=== PATIENT | male | born 2000 | race Caucasian/White ===

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

== ENCOUNTER 2020-01-19 22:46 | Emergency (ER) | payer MEDICAID, SELFPAY ==
[2020-01-19 22:47] VITALS: BP 145/79; PULSE 86; RESP 18; TEMP 36.9; O2SAT 97; BMI 32.6
--- NOTE | 2020-01-19 23:03 | ED.VISSUMM ---
- ER Visit Summary Date of Service: 01/19/20 Chief Complaint: Earache on the left History of Present Illness: The patient is a 19 M with no primary care physician. Reports he has left ear pain that began 1 week ago. Came on suddenly. States that he woke up in the morning with it. Is a sharp continuous pain is 10-10 at worst and 3-10 currently. Is worsened by loud noises. Relieved by sleeping. He denies any fever, chills, congestion, sore throat, or cough. He does have seasonal allergies. Physical Examination: Vitals: Stable. Afebrile. General: Well-nourished and well-developed. Head: Normocephalic atraumatic. HEENT: External auditory canals are normal bilaterally. He has a serous effusion on the left. There is no erythema, dullness, or loss of landmarks. No pharyngeal erythema or tonsillar exudate. No cervical lymphadenopathy. Neck: Supple, no lymphadenopathy. No JVD. Nontender. Cardiovascular: Regular rate and rhythm. No murmurs. Respiratory: No respiratory distress. Clear to auscultation bilaterally. Abdominal: Soft, nontender, nondistended, normal bowel sounds. No guarding, rebound, or peritoneal signs. Back: Nontender. Extremities: Nontender, no edema. Skin: Normal color, no rash. Neurologic: Alert and oriented ?3. Cranial nerves II through XII are intact. Normal strength and sensation. Psych: Normal affect. Emergency Department Course and Treatment: Patient was given a dose of naproxen. He is resting comfortably. Treatment Plan: Patient be discharged on Zyrtec and naproxen. Instructed to follow-up with the [facility] and 10 to 14 days if not improving. Return to the emergency department for any worsening symptoms. Disposition: To home in improved and stable condition. Impression: 1. Left ear serous effusion. This note was generated with [employer] dictation software. It may contain incorrect words, spelling, and punctuation that were not noted in review of the chart prior to signing ED Disposition - Plan for ED Patient: Disposition: Home or Assisted Living Instructions: ED SEROUS OTITIS MEDIA Adult Prescriptions: Naproxen [Naprosyn] 500 mg PO BID #14 tab Prescription Printed Cetirizine HCl [Zyrtec] 10 mg PO DAILY #14 cap Prescription Printed Referrals: Mignon Coyle [NON-STAFF] - 10-14 Days if not better
[2020-01-19] MEDS: Naproxen 250 MG Tablet 500 MG PO (23:18)
== END 2020-01-19 23:26 | disposition home or self-care (01) ==
LOC: ED 23:25
PROVIDERS: Emergency Provider Emergency Medicine
DX: H92.02 Otalgia, left ear (principal); Z72.0 Tobacco use
CPT/HCPCS: 99283

== ENCOUNTER 2020-02-11 17:15 | Emergency (ER) | payer MEDICAID, SELFPAY ==
[2020-02-11 17:16] VITALS: BP 140/84; PULSE 101; RESP 16; TEMP 36.6; O2SAT 96; BMI 33.3
--- NOTE | 2020-02-11 17:22 | CT_ITS ---
STUDY: CT BRAIN WITHOUT CONTRAST REASON FOR EXAM: Male, 19 years old. PT STATED HE HIT HIS HEAD TODAY RADIATION DOSAGE (If Supplied By Facility): CTDIvol = ( 44.99 ) mGy, DLP = ( 745.49 ) mGycm TECHNIQUE: Transaxial CT imaging of the brain was performed without administration of intravenous contrast material. Individualized dose optimization techniques were used for this CT. COMPARISON: No relevant priors. FINDINGS: Normal soft tissue structures. Normal calvarium. Normal size ventricles and extra-axial spaces for the patient''s age. Normal white matter tracts of the cerebral hemispheres. Normal basal ganglia and thalami. Normal brainstem. Normal cerebellum. There is no intracranial hemorrhage. There are no findings of an acute ischemic infarction. Normal visualized paranasal sinuses. CT/Brain/Head without Contrast IMPRESSION: Normal unenhanced CT scan of the brain. Electronically Signed: Davey Fay MD at 17:47 EDT , Service support ,
--- NOTE | 2020-02-11 17:22 | CT_ITS ---
STUDY: CT CERVICAL SPINE WITHOUT CONTRAST REASON FOR EXAM: Male, 19 years old. PT STATED HE HIT HIS HEAD TODAY RADIATION DOSAGE (If Supplied By Facility): CTDIvol = ( 29.28 ) mGy, DLP = ( 703.81 ) mGycm TECHNIQUE: High resolution transaxial imaging was performed without contrast material. Sagittal and coronal images were reconstructed. Individualized dose optimization techniques were used for this CT. COMPARISON: None FINDINGS: Normal craniovertebral junction. Normal anterior atlantoaxial articulation. Normal odontoid process. Normal cervical lordosis. Normal vertebral bodies and posterior osseous elements. C2-3: Normal endplates. Normal disc height and morphology. Normal central canal and intervertebral neuroforamina. C3-4: Normal endplates. Normal disc height and morphology. Normal central canal and intervertebral neuroforamina. C4-5: Normal endplates. Normal disc height and morphology. Normal central canal and intervertebral neuroforamina. C5-6: Normal endplates. Normal disc height and morphology. Normal central canal and intervertebral neuroforamina. C6-7: Normal endplates. Normal disc height and morphology. Normal central canal and intervertebral neuroforamina. C7-T1: Normal endplates. Normal disc height and morphology. Normal central canal and intervertebral neuroforamina. Normal visualized soft tissue structures. CT/Spine Cervical without Contras IMPRESSION: Normal unenhanced CT examination of the cervical spine. Electronically Signed: Davey Fay MD at 17:48 EDT , Service support ,
--- NOTE | 2020-02-11 17:23 | ED.VIS.GEN ---
History of Present Illness Chief Complaint: Head Injury Informant: Patient Onset: Yesterday Context: Gradual Onset Timing: Continuous Current Severity: Moderate Maximum Severity: Moderate Narrative: Patient is an otherwise healthy male who presents to the emergency department with head and neck injury. Patient states he was playing on a slide with his younger sister yesterday. He fell and struck the ground. He states he landed on his face. He was wearing glasses. He had some bleeding from his nares. He is unsure if he lost consciousness, but states I blacked out. Since, he is had persistent headache, disequilibrium, and neck pain. He denies any numbness or tingling. He denies any weakness of his arms. He has not taken anything for his pain. He is not on anticoagulants. Prior similar symptoms: No Recent Illness/Hospitalization: No Past Medical History - Allergies and Home Meds Allergies/Adverse Reactions: Allergies No Known Allergies Allergy (Verified 02/11/20 17:15) Primary Care Physician: Care Physician,No Primary [Primary Care Provider] - Prior records reviewed: Yes Past Medical History: None Surgical History: no surgical history Smoking Status: Current every day smoker Review of Systems General: Denies: Chills, Fever, Sweats Eyes: Denies: Visual changes - bilaterally, Diplopia ENT: Denies: Rhinorrhea, Sore throat Cardiovascular: Denies: Chest pain, Palpitations Respiratory: Denies: Dyspnea, Cough, Dyspnea on exertion Gastrointestinal: Denies: Abdominal pain, Nausea, Vomiting, Diarrhea, Melena, Hematochezia Genitourinary: Denies: Dysuria, Hematuria, Frequency Musculoskeletal: Denies: Back pain, Extremity Pain Skin: Denies: Rash, Wounds Neurological: Denies: Headache, Weakness, Numbness Physical Exam Vital Signs/Narrative: Vital Signs Temp Pulse Resp BP Pulse Ox 02/11/20 17:16 97.9 F 101 H 16 140/84 H 96 Inital Vital Signs reviewed: Yes General: Well nourished, Well developed, No Acute Distress Head: Normocephalic, Trauma - Trauma across bridge of the nose. No septal hematoma. Eyes: Perrl, EOMI ENT: Moist mucous membranes, No rhinorrhea Neck: Supple, No lymphadenopathy, No JVD Cardiovascular: Regular rate, Regular rhythm, No murmurs Respiratory: No distress, CTA bilaterally, Chest nontender Abdomen: Soft, Nontender, Nondistended, Normal bowel sounds Back: Nontender, Normal Inspection Extremities: Nontender, No edema Skin: Normal color, No rash Neurological: Alert, Oriented x3, Cranial nerves II-XII grossly intact, Normal Strength, Normal Sensation Psychological: Normal affect, Normal Mood Diagnostic/Tx/Re-eval Clinical Impression(s) from Imaging Studies Brain CT 02/11/20 17:22 IMPRESSION: Normal unenhanced CT scan of the brain. Electronically Signed: Davey Fay MD at 17:47 EDT , Service support , Cervical Spine CT 02/11/20 17:22 IMPRESSION: Normal unenhanced CT examination of the cervical spine. Electronically Signed: Davey Fay MD at 17:48 EDT , Service support , - Medical Decision Making With the patient's persistent headache and neck pain, I did obtain imaging. CT of the head and C-spine were both obtained. There was no and so fracture, intracranial abnormality, or other dangerous process. The patient likely has a mild concussion and cervical strain. He will be treated symptomatically. He was counseled on concerning symptoms and reasons to return. He has normal reflexes and strength of his upper extremities. I am not worried about vertebral artery dissection or central cord syndrome based on his examination. Patient was counseled on supportive care. He will be discharged home. Impression 1. Concussion 2. Cervical strain ED Disposition - Plan for ED Patient: Instructions: ED Concussion, ED Sprain Strain Neck Prescriptions: cycloBENZAPRine HCl [Flexeril] 10 mg PO TID PRN #20 tab PRN Reason: Muscle Spasm Prescription Printed Naproxen [Naprosyn] 500 mg PO BID PRN #20 tab Prescription Printed Referrals: Care Physician,No Primary [Primary Care Provider] -
== END 2020-02-11 18:04 | disposition home or self-care (01) ==
LOC: ED 17:53
PROVIDERS: Emergency Provider Emergency Medicine
DX: S06.0X9A Concussion with loss of consciousness of unspecified duration, initial encounter (principal); S16.1XXA Strain of muscle, fascia and tendon at neck level, initial encounter; W09.0XXA Fall on or from playground slide, initial encounter; Y93.89 Activity, other specified; Y92.9 Unspecified place or not applicable; Y99.9 Unspecified external cause status; F17.200 Nicotine dependence, unspecified, uncomplicated
CPT/HCPCS: 70450; 72125; 99282

== ENCOUNTER 2020-03-01 08:10 | Emergency (ER) | payer MEDICAID, SELFPAY ==
[2020-03-01 08:11] VITALS: BP 142/76; PULSE 85; RESP 17; TEMP 36.1; O2SAT 97; BMI 33.2
--- NOTE | 2020-03-01 08:30 | RAD_ITS ---
STUDY: X-RAY - PELVIS AND LEFT HIP REASON FOR EXAM: Male, 19 years old. Pain for 3 weeks, NKI TECHNIQUE: 3 views of the pelvis and hip. COMPARISON: None. FINDINGS: There is a non-specific bowel gas pattern. Normal visualized soft tissue structures. Normal bilateral iliac wings, sacroiliac joints and visualized sacrum. Normal bilateral superior and inferior pubic rami. Normal pubic symphysis. Normal bilateral ischial tuberosities. Normal visualized femoral head. Normal acetabulum. Normal hip joint. RAD/HIP, UNI W/ Pelvis 2-3 Views IMPRESSION: Normal x-ray examination of the pelvis and hip. Electronically Signed: Ad Dudley, at 8:47 EDT , Service support ,
--- NOTE | 2020-03-01 08:42 | ED.VISSUMM ---
- ER Visit Summary Date of Service: 03/01/20 Chief Complaint: Left hip pain History of Present Illness: The patient is a 19 M presenting with left hip pain. Patient states this started 2 weeks ago. He states he fell off a slide. He said he had a CT scan of his head following the fall but did not have x-rays of his hip. He states he has had pain in his left hip since. He has tried ibuprofen at home. He is able to ambulate. Denies other complaints. Physical Examination: Vitals are stable. Patient is afebrile. Alert no acute distress. HEENT exam is unremarkable. Neck is supple. Lungs are clear and equal bilaterally. Heart is regular rate and rhythm. Abdomen is soft nontender nondistended. Extremities mild left lateral hip tenderness Skin is warm and dry. No focal neurologic deficit. Remainder of exam is unremarkable. Emergency Department Course and Treatment: Left hip x-ray shows normal x-ray examination of the pelvis and hip. On reevaluation, patient is resting comfortably. He is given prescription for Naprosyn. Advised to follow-up with Dr. Hall director of content and programming for no doctor. Advised return to the ED for worsening complaints. Disposition: Discharge home Impression: Left hip pain This note was generated with [employer] dictation software. It may contain incorrect words, spelling, and punctuation that were not noted in review of the chart prior to signing ED Disposition - Plan for ED Patient: Referrals: Care Physician,No Primary [Primary Care Provider] -
--- NOTE | 2020-03-01 09:27 | ED.DEP ---
ED Disposition - Plan for ED Patient: Prescriptions: Naproxen [Naprosyn] 500 mg PO BID PRN #20 tablet Referrals: Huber Hall MD [NON-STAFF] -
== END 2020-03-01 09:40 | disposition home or self-care (01) ==
LOC: ED 09:03
PROVIDERS: Emergency Provider Emergency Medicine
DX: M25.552 Pain in left hip (principal); F17.200 Nicotine dependence, unspecified, uncomplicated; W09.0XXA Fall on or from playground slide, initial encounter
CPT/HCPCS: 73502; 99282

== ENCOUNTER 2020-04-25 01:53 | Emergency (ER) | payer MEDICAID, SELFPAY ==
[2020-04-25] VITALS (7 sets, daily range): BP systolic 128–153; BP diastolic 71–111; PULSE 65–88; RESP 15–20; TEMP 38; O2SAT 95–99; BMI 33.5
--- NOTE | 2020-04-25 01:58 | RAD_ITS ---
STUDY: X-RAY - RIGHT WRIST REASON FOR EXAM: Male, 19 years old. FELL -- DEFORMITY TO RT WRIST TECHNIQUE: 3 view(s) of the wrist were obtained. COMPARISON: None. FINDINGS: There is an acute traumatic fracture of the radial metaphysis, extending to the posterior corner of the articular surface. There is angulation convex posteriorly. There is an acute traumatic fracture of the ulnar styloid with lateral displacement. There is no demonstrated dislocation or subluxation of the radiocarpal articulation. Normal distal radioulnar articulation. Normal carpal bones. Normal carpal articulations. Normal carpometacarpal articulation of the thumb. Normal second through fifth carpometacarpal articulations. Normal visualized metacarpal bones. The soft tissue structures are unremarkable. RAD/Wrist min 3 Views IMPRESSION: Angulated fracture of the radial metaphysis. There is minimal intra-articular involvement along the posterior margin of the radiocarpal articulations. Displaced fracture of the ulnar styloid.. Electronically Signed: Mohinder Hughes MD at 2:31 EDT , Service support ,
--- NOTE | 2020-04-25 02:00 | ED.DCSUM_ITS ---
History of Present Illness Chief Complaint: Upper Extremity Injury Informant: Patient Narrative: Stated he fell down on the edge of a [place] just prior to arrival. Injured his right wrist only. Denies any alcohol or illicit substance abuse. He is having pain in the right wrist. Current severity is moderate. He cannot move it secondary to deformity. No previous injury to this area. Denies any numbness or tingling distally. Past Medical History - Allergies and Home Meds Allergies/Adverse Reactions: Allergies No Known Allergies Allergy (Verified 04/25/20 01:58) Primary Care Physician: Gabe Ramirez MD [STAFF PHYSICIAN] - Prior records reviewed: Yes Past Medical History: None Surgical History: no surgical history Lives: With Family Smoking Status: Current every day smoker Alcohol: None Drugs: None Review of Systems General: Denies: Chills, Fever, Sweats Eyes: Denies: Visual changes - bilaterally, Diplopia ENT: Denies: Rhinorrhea, Sore throat Cardiovascular: Denies: Chest pain, Palpitations Respiratory: Denies: Dyspnea, Cough, Dyspnea on exertion Gastrointestinal: Denies: Abdominal pain, Nausea, Vomiting, Diarrhea, Melena, Hematochezia Genitourinary: Denies: Dysuria, Hematuria, Frequency Musculoskeletal: Reports: Extremity Pain. Denies: Back pain Skin: Denies: Rash, Wounds Neurological: Denies: Headache, Weakness, Numbness Physical Exam Vital Signs/Narrative: Vital Signs Temp Pulse Resp BP Pulse Ox 04/25/20 01:54 100.4 F H 88 16 153/88 H 97 General: Well nourished, Well developed, No Acute Distress Head: Normocephalic, Atraumatic Eyes: Perrl, EOMI ENT: Moist mucous membranes, No rhinorrhea Neck: Supple, Nontender Cardiovascular: Regular rate, Regular rhythm, No murmurs Respiratory: No distress, CTA bilaterally, Chest nontender Abdomen: Soft, Nontender, Nondistended, Normal bowel sounds Back: Nontender, Normal Inspection Extremities: - - Patient has tenderness to the right wrist diffusely. He has a dinner fork deformity to the right wrist secondary to a suspected wrist fracture. Skin: - - This l abrasion to the right lateral wrist 1 cm x 1 cm Neurological: Alert, Oriented x3, Cranial nerves II-XII grossly intact, Normal Strength, Normal Sensation Psychological: Normal affect, Normal Mood Diagnostic/Tx/Re-eval - Medical Decision Making IV established patient given a dose of morphine. X-ray of the right wrist obtained. Given ice pack. X-ray shows a volar displacement of the distal radius fracture. Ulnar styloid fracture noted as well. Patient consented to procedural sedation with propofol for reduction of wrist fracture. Patient was given propofol in incremental dosing up to 130 mg. Placed on the monitor and placed on oxygen. Tolerated the procedure well. Once procedural sedation occurred action was applied to the distal portion of the fracture with manual traction and realignment was obtained. Patient was placed in a fabricated Ortho-Glass AP splint. Tolerated the procedure well. Postreduction x-rays show intra-articular involvement of the distal radius fracture as well as the ulnar styloid fracture. There is straightened anatomical alignment of the fracture pattern postreduction. He remains hemodynamically stable. Distal he is neurovascular intact post procedure. No evidence of compartment syndrome after testing. Good cap refill. Follow-up with orthopedics for definitive management. Given a short course of [place] for home. ED Disposition - Plan for ED Patient: Disposition: Home or Assisted Living Diagnosis: Wrist fracture, closed Instructions: ED WRIST FRACTURE General Prescriptions: Hydrocodone Bitart/Apap 5-325 [[place] 5MG-325MG] 1 - 2 tab PO Q6H PRN PRN 3 Days #10 tab PRN Reason: Pain Transmission Status: Received by [facility] [employer] #30 Referrals: Gabe Ramirez MD [STAFF PHYSICIAN] -
[2020-04-25] MEDS: Morphine 4 MG/ML Syringe IV (02:16)
[2020-04-25] MEDS: 0.9% Normal Saline 1,000 ML 150 ML IV (02:16)
[2020-04-25] MEDS: Propofol 200 MG/20 ML Vial IV BOLUS (02:28)
--- NOTE | 2020-04-25 02:36 | RAD_ITS ---
STUDY: X-RAY - RIGHT WRIST REASON FOR EXAM: Male, 19 years old. POST REDUCTION TECHNIQUE: 3 view(s) of the wrist were obtained. Images were obtained through an overlying fiberglass splint. COMPARISON: None. FINDINGS: There is an acute traumatic comminuted fracture of the distal radius,. There is a transverse fracture extending across the metaphysis. As seen on lateral view, there is a coronally oriented fracture extending through the anterior cortex and extending to the anterior margin of the radial-carpal articulations. As seen on lateral view, there is also apparent posterior displacement of bone along the posterior margin of the distal radius, with approximately 7 mm bone separation. As seen on PA view, there is a sagittally oriented fracture extending through the distal articular surface of the radius, underlying the lunate bone. There appears to be adequate alignment. There is a displaced fracture of the ulnar styloid. There is no demonstrated dislocation at the radiocarpal articulation. Normal distal radioulnar articulation. Normal carpal bones. Normal carpal articulations. Normal carpometacarpal articulation of the thumb. Normal second through fifth carpometacarpal articulations. Normal visualized metacarpal bones. The soft tissue structures are unremarkable. RAD/Wrist min 3 Views IMPRESSION: Comminuted fracture of the distal radius with intra-articular involvement. There appears to be substantial separation of bone along the posterior margin of the articular surface of the distal radius. Otherwise, there appears to be adequate alignment of the radial fracture.. Displaced fracture of the ulnar styloid. Electronically Signed: Mohinder Hughes MD at 3:49 EDT , Service support ,
[2020-04-25] MEDS: HYDROcodone Bitartrate/Apap 5/325 Tablet PO (04:01)
== END 2020-04-25 04:09 | disposition home or self-care (01) ==
PROVIDERS: Emergency Provider Emergency Medicine; PCP Family Medicine
DX: S52.591A Other fractures of lower end of right radius, initial encounter for closed fracture (principal); S52.611A Displaced fracture of right ulna styloid process, initial encounter for closed fracture; W19.XXXA Unspecified fall, initial encounter; Y93.9 Activity, unspecified; Y92.89 Other specified places as the place of occurrence of the external cause; Y99.9 Unspecified external cause status; F17.200 Nicotine dependence, unspecified, uncomplicated
CPT/HCPCS: 25605; 73110; 96361; 96374; 96375; 99285; J7030; A4216

== ENCOUNTER 2020-05-27 01:48 | Emergency (ER) | payer MEDICAID, SELFPAY ==
[2020-04-25 01:54] VITALS: BMI 33.5
[2020-05-27 01:49] VITALS: BP 163/91; PULSE 115; RESP 22; TEMP 36.2; O2SAT 96; BMI 35.0
--- NOTE | 2020-05-27 02:51 | ED.VISSUMM ---
- ER Visit Summary Date of Service: 05/27/20 Chief Complaint: Bleeding from incision History of Present Illness: The patient is a 20 M who had surgery on his right wrist by Dr. Chase at [facility] yesterday. He reports that he noticed tonight that there was bleeding from his incision. He denies any pain. In fact he reports that he has a block that would last for 24 hours and his arm is numb. He denies any fever or chills. He is left-hand dominant. Physical Examination: Vitals: Stable. Afebrile. General: Well-nourished and well-developed. Head: Normocephalic atraumatic. Neck: Supple, no lymphadenopathy. No JVD. Nontender. Cardiovascular: Regular rate and rhythm. No murmurs. Respiratory: No respiratory distress. Clear to auscultation bilaterally. Abdominal: Soft, nontender, nondistended, normal bowel sounds. No guarding, rebound, or peritoneal signs. Back: Nontender. Extremities: Nontender, no edema. The incision on the posterior surface of his right distal radius has no active bleeding. There is blood on the dressing. The incision is clean, dry, and intact. Skin: Normal color, no rash. Neurologic: Alert and oriented ?3. Cranial nerves II through XII are intact. Normal strength and sensation. Psych: Normal affect. Emergency Department Course and Treatment: Patient had the dressing removed and a clean dressing and splint were placed. He is resting comfortably. Treatment Plan: Patient will be discharged instructions to keep the extremity elevated. Follow-up Dr. Chase in 1 week as previously scheduled. Return to the emergency department for any worsening symptoms. Disposition: To home in improved and stable condition. Impression: 1. Postop bleeding. 2. 1 day status post right distal radius repair. This note was generated with [employer] software. It may contain incorrect words, spelling, and punctuation that were not noted in review of the chart prior to signing ED Disposition - Plan for ED Patient: Disposition: Home or Assisted Living Instructions: ED Wound Check Post Op Bleeding Additional Instructions: Follow-up with Dr. Chase as previously scheduled.
[2020-05-27 03:02] VITALS: BP 150/80; PULSE 99; RESP 17; O2SAT 97
== END 2020-05-27 03:03 | disposition home or self-care (01) ==
LOC: ED 02:06
PROVIDERS: Emergency Provider Emergency Medicine; PCP Family Medicine
DX: L76.22 Postprocedural hemorrhage of skin and subcutaneous tissue following other procedure (principal); Y83.9 Surgical procedure, unspecified as the cause of abnormal reaction of the patient, or of later complication, without mention of misadventure at the time of the procedure; Y92.9 Unspecified place or not applicable; Z98.890 Other specified postprocedural states; Z72.0 Tobacco use; Z79.899 Other long term (current) drug therapy
CPT/HCPCS: 99283

== ENCOUNTER 2020-06-09 19:23 | Emergency (ER) | payer MEDICAID, SELFPAY ==
[2020-06-09 19:24] VITALS: BP 129/89; PULSE 119; RESP 16; TEMP 36.3; O2SAT 96; BMI 34.2
--- NOTE | 2020-06-09 19:32 | ED.DCSUM_ITS ---
History of Present Illness Chief Complaint: Suture Remv Informant: Patient Onset: Days Current Severity: Mild Maximum Severity: Mild Narrative: Patient is a 20-year-old male is right-hand dominant that presents to the [facility] department requesting suture removal. Patient had operative fixation of a distal radius fracture in mid May with Dr. Chase in [place]. He was to have the stitches out on the , but could not get a ride to the office. He presents today requesting stitches out. He denies any other symptoms. He is otherwise been in his normal state of health. Prior similar symptoms: No Recent Illness/Hospitalization: Yes Past Medical History - Allergies and Home Meds Allergies/Adverse Reactions: Allergies No Known Allergies Allergy (Verified 06/09/20 19:25) Primary Care Physician: Huber Hall MD [Primary Care Provider] - Prior records reviewed: Yes Past Medical History: - - Depression Surgical History: no surgical history Smoking Status: Current every day smoker Review of Systems General: Denies: Chills, Fever, Sweats Eyes: Denies: Visual changes - bilaterally, Diplopia ENT: Denies: Rhinorrhea, Sore throat Cardiovascular: Denies: Chest pain, Palpitations Respiratory: Denies: Dyspnea, Cough, Dyspnea on exertion Gastrointestinal: Denies: Abdominal pain, Nausea, Vomiting, Diarrhea, Melena, Hematochezia Genitourinary: Denies: Dysuria, Hematuria, Frequency Musculoskeletal: Denies: Back pain, Extremity Pain Skin: Denies: Rash, Wounds Neurological: Denies: Headache, Weakness, Numbness Physical Exam Vital Signs/Narrative: Vital Signs Temp Pulse Resp BP Pulse Ox 06/09/20 19:24 97.4 F L 119 H 16 129/89 H 96 Inital Vital Signs reviewed: Yes General: Well nourished, Well developed, No Acute Distress Head: Normocephalic, Atraumatic Eyes: Perrl, EOMI ENT: Moist mucous membranes, No rhinorrhea Neck: Supple, Nontender Cardiovascular: Regular rate, Regular rhythm, No murmurs Respiratory: No distress, CTA bilaterally, Chest nontender Abdomen: Soft, Nontender, Nondistended, Normal bowel sounds Back: Nontender, Normal Inspection Extremities: Nontender, No edema, - - Patient has 2 surgical incisions that are well approximated. There is no erythema or edema or bleeding. Skin: Normal color, No rash Neurological: Alert, Oriented x3, Cranial nerves II-XII grossly intact, Normal Strength, Normal Sensation Psychological: Normal affect, Normal Mood Diagnostic/Tx/Re-eval - Medical Decision Making Patient had 9 sutures total that were all removed without issue. There is no evidence of infection. There is no bleeding. He will continue local wound care and follow-up with orthopedics. Impression 1. Postoperative stitch removal ED Disposition - Plan for ED Patient: Instructions: ED Stitches/Staple Removal No Complication Referrals: Huber Hall MD [Primary Care Provider] -
== END 2020-06-09 19:42 | disposition home or self-care (01) ==
LOC: ED 19:40
PROVIDERS: Emergency Provider Emergency Medicine; PCP Family Medicine
DX: Z48.02 Encounter for removal of sutures (principal); F17.200 Nicotine dependence, unspecified, uncomplicated; F41.9 Anxiety disorder, unspecified
CPT/HCPCS: 99282

== ENCOUNTER 2020-06-30 14:12 | Emergency (ER) | payer MEDICAID, SELFPAY ==
[2020-06-30 14:14] VITALS: BP 126/73; PULSE 142; RESP 17; TEMP 36.4; O2SAT 95; BMI 34.3
--- NOTE | 2020-06-30 14:54 | ED.VIS.DENTA ---
History of Present Illness Informant: Patient Onset: Yesterday Context: Gradual Onset Timing: Continuous Quality: Sharp pain Location: Facial swelling right side of mouth with pain Current Severity: Moderate Maximum Severity: Severe Worsened by: Food Relieved by: - - Nothing Associated Symptoms: Jaw Swelling, Facial Swellling, Hot, Cold, Sensitivity Narrative: 20-year-old male presents with dental pain. He is complaining of right-sided dental pain with facial swelling. He also has a sore throat. He has not had a fever or cough. He denies vomiting or diarrhea. He has not had any difficulties breathing or swallowing or opening closing his mouth. Denies trauma. Denies headache or neck pain. Prior similar symptoms: Yes Recent Illness/Hospitalization: No <Buzz Vidales - Last Filed: 06/30/20 15:15> <Dagoberto Escalante - Last Filed: 06/30/20 21:52> Chief Complaint: Cough Past Medical History Prior records reviewed: Yes Past Medical History: None Surgical History: no surgical history Smoking Status: Current every day smoker Alcohol: Occasional Drugs: Marijuana <Buzz Vidales - Last Filed: 06/30/20 15:15> <Dagoberto Escalante - Last Filed: 06/30/20 21:52> - Allergies and Home Meds Allergies/Adverse Reactions: Allergies No Known Allergies Allergy (Verified 06/30/20 14:13) Primary Care Physician: Huber Hall MD [Primary Care Provider] - Review of Systems All systems negative except as indicated General: Denies: Chills, Fever, Sweats Eyes: Denies: Visual changes - bilaterally, Diplopia ENT: Reports: Sore throat, -. Denies: Bilateral ear pain, Rhinorrhea Cardiovascular: Denies: Chest pain, Palpitations Respiratory: Denies: Dyspnea, Cough, Dyspnea on exertion Gastrointestinal: Denies: Abdominal pain, Nausea, Vomiting, Diarrhea, Melena, Hematochezia Genitourinary: Denies: Dysuria, Hematuria, Frequency Musculoskeletal: Denies: Back pain, Swelling, Extremity Pain Skin: Denies: Rash, Wounds Neurological: Denies: Headache, Weakness, Numbness <Buzz Vidales - Last Filed: 06/30/20 15:15> Physical Exam Vital Signs/Narrative: Vital Signs Temp Pulse Resp BP Pulse Ox 09/25/20 14:14 97.6 F L 142 H 17 126/73 H 95 Inital Vital Signs reviewed: Yes General: Well nourished, Well developed Head: Normocephalic, Atraumatic ENT: Moist mucous membranes, No rhinorrhea, TM's clear Mouth/Throat: Normal inspection lips/gums, Normal oral mucosa, Normal posterior oropharynx, No sublingual edema, Tenderness on tooth percussion, Widespread dental decay. Negative for: Dental trauma, Dental abscess Neck: Supple, No lymphadenopathy, Nontender, No JVD Cardiovascular: Regular rate, Regular rhythm, No murmurs Respiratory: No distress, CTA bilaterally, Chest nontender Abdomen: Soft, Nontender, Nondistended, Normal bowel sounds Back: Nontender, Normal Inspection Extremities: Nontender, No edema Skin: Normal color, No rash Neurological: Alert, Oriented x3, Cranial nerves II-XII grossly intact, Normal Strength, Normal Sensation Psychological: Normal affect <Buzz Vidales - Last Filed: 06/30/20 15:15> Diagnostic/Tx/Re-eval - Medical Decision Making Patient has what appears to be a localized dental infection but no focal abscess. He will be started on penicillin I will also prescribe him Naprosyn and he will be referred to dental for follow-up. At this time he has no sublingual edema or trismus his voice is normal he is tolerating by mouth his vital signs are stable and he was discharged home with return precautions <Buzz Vidales - Last Filed: 06/30/20 15:15> - Medical Decision Making Patient presents [facility] for dental pain. He does have some facial swelling. No obvious drainable abscess present. Agree with above assessment and plan by TAMARA. He did have some tachycardia upon arrival but on my exam his heart rate was borderline tachycardic. He was more concerned about finding his headphones which she could not locate during my exam. He is very well-appearing. Otherwise patient needs to follow-up with his dentist. He understands and is agreeable this plan. <Dagoberto Escalante - Last Filed: 06/30/20 21:52> ED Disposition <Buzz Vidales - Last Filed: 06/30/20 15:15> <Dagoberto Escalante - Last Filed: 06/30/20 21:52> - Plan for ED Patient: Disposition: Home or Assisted Living Diagnosis: Dental caries, Odontalgia Instructions: ED Tooth Pain Prescriptions: Naproxen [Naprosyn] 500 mg PO BID #14 tab Prescription Printed Penicillin V Potassium 500 mg PO 4X/DAY #40 tab Prescription Printed Referrals: Huber Hall MD [Primary Care Provider] -
[2020-06-30 15:30] VITALS: BP 127/66; PULSE 84; RESP 15; O2SAT 99
[2020-06-30 15:33] VITALS: O2SAT 99
== END 2020-06-30 15:34 | disposition home or self-care (01) ==
PROVIDERS: Emergency Provider Physician Assistant Medical; PCP Family Medicine
DX: K08.89 Other specified disorders of teeth and supporting structures (principal); K02.9 Dental caries, unspecified; R22.0 Localized swelling, mass and lump, head; J02.9 Acute pharyngitis, unspecified; R05 Cough; F17.200 Nicotine dependence, unspecified, uncomplicated; Z79.899 Other long term (current) drug therapy
CPT/HCPCS: 99282

== ENCOUNTER 2021-04-17 23:37 | Emergency (ER) | payer MEDICAID, SELFPAY ==
[2021-04-17 23:38] VITALS: BP 122/77; PULSE 105; RESP 18; TEMP 36.4; O2SAT 99; BMI 31.6
--- NOTE | 2021-04-17 23:55 | EDS_ITS ---
HPI History of Present Illness Chief Complaint: Constipation Informant: patient Narrative Narrative: 20-year-old male presenting with constipation and abdominal pain. He states this started 5 days ago. He complains of lower abdominal pain. He has had nausea with no vomiting. Denies other complaints. He has not taken any medications for his constipation. [facility] Medical History (Updated 04/18/21 @ 01:[address] Mojgan Polanco MD) DM type 2 (diabetes mellitus, type 2) Home Medications amoxicillin-pot clavulanate [Augmentin] 1 tab PO BID #14 tab 04/18/21 [Rx Last Taken Unknown] polyethylene glycol 3350 [Miralax] 17 g PO DAILY #119 g 04/18/21 [Rx Last Taken Unknown] Allergy/AdvReac Type Severity Reaction Status Date / Time No Known Allergies Allergy Verified 04/17/21 23:39 Social History (System 10/29/19 @ 08:36 by Jaz Katz) Smoking Status: Current every day smoker tobacco type: cigarettes ROS ROS ED Constitutional Constitutional ED: Denies fever(s) Eyes Eyes: Denies change in vision ENT ENT ED: Denies rhinorrhea or sore throat Cardiovascular Cardiovascular: Denies chest pain or palpitations Respiratory/Chest Respiratory/Chest: Denies cough or dyspnea Gastrointestinal Gastrointestinal: Reports abdominal pain, constipation and nausea; Denies diarrhea or vomiting Genitourinary Genitourinary ED: Denies dysuria Musculoskeletal Musculoskeletal: Denies myalgias Integumentary Denies rash Neurologic Neurologic: Denies headache(s) Psychiatric Psychiatric: Denies suicidal thoughts EXAM Physical Exam Const Vital Signs: 04/17/21 23:38 04/18/21 00:17 Temperature 97.6 F L Temperature Source Temporal Pulse Rate 105 H Respiratory Rate 18 17 Blood Pressure 122/77 H Blood Pressure Mean 92 Pulse Ox 99 Oxygen Delivery Method Room Air Positive well nourished and well developed General Appearance ED: well developed HEENT Reports normocephalic and head/scalp atraumatic Eyes PERRL and EOMs intact bilaterally Neck supple General: Negative for tenderness Chest Wall inspection of chest normal Resp normal respiratory effort and clear to auscultation bilaterally Cardio regular rate and regular rhythm GI non-distended Palpation: soft and tender RLQ; Negative for guarding or rebound tenderness present no CVA tenderness Extremity normal to inspection Neuro oriented x3 Sensorium / Orientation: alert Psych mental status grossly normal MDM MDM MDM Narrative Medical decision making narrative: CBC, chemistries unremarkable. CT abdomen pelvis shows mild diffuse colitis. He was given prescription for Augmentin. Advised to follow-up with primary care physician. Advised return to ED for worsening complaints. Lab Data Attestation: I reviewed the patient's lab results. Labs: Laboratory Results - last 24 hr 04/18/21 04/18/21 00:18 00:18 WBC 6.0 RBC 5.35 Hgb 14.8 Hct 45.7 MCV 85.4 MCH 27.7 MCHC 32.4 RDW Std Deviation 38.8 RDW Coeff of Jayashree 12.5 Plt Count 224 MPV 9.8 Immature Gran % (Auto) 0.200 Neut % (Auto) 53.2 Lymph % (Auto) 35.2 [place] % (Auto) 9.8 Eos % (Auto) 1.3 Baso % (Auto) 0.3 Absolute Neuts (auto) 3.2 Absolute Lymphs (auto) 2.12 Nucleated RBC % 0 Sodium 140 Potassium 3.8 Chloride 108 H Carbon Dioxide 28.0 Anion Gap 4 L BUN 10 Creatinine 0.80 Estim Creat Clear Calc 132.92 Est GFR (MDRD) Af Amer 156 Est GFR (MDRD) Non-Af 129 BUN/Creatinine Ratio 12.5 Glucose 97 Calcium 8.6 Radiography Diagnostic Testing: Radiology Impression Abdomen/Pelvis CT 04/18/21 23:49 IMPRESSION: Possible mild diffuse colitis. No acute appendicitis or bowel obstruction. Remainder of the exam unremarkable. Electronically Signed: Madhavi Perry MD at 1:23 EDT , Service support , Discharge Plan Triage Chief Complaint: Constipation ED Provider: Mojgan Polanco Dx/Rx/DC Orders Clinical Impression: Colitis Instructions: ED Understanding Colitis Prescriptions: New amoxicillin-pot clavulanate [Augmentin] 875-125 mg tablet 1 tab PO BID Qty: 14 RF: 0 polyethylene glycol 3350 [Miralax] 17 gram/dose powder 17 g PO DAILY Qty: 119 RF: 0 Primary Care Provider: Huber Hall Referrals: Huber Hall MD [Primary Care Provider] - Disposition Disposition: Home, Self Care
[2021-04-18 00:17] VITALS: RESP 17
[2021-04-18 00:29] LABS: Absolute Lymphocyte Count 2.12 X10^3/uL (0.83-4.51); Absolute Neutrophil Count 3.2 X10^3/uL (2.0-7.7); Basophil# 0.02 X10^3/uL; Basophil% 0.3 % (0-1); Eosinophil# 0.08 X10^3/uL; Eosinophils% 1.3 % (0-5); Hematocrit 45.7 % (40-54); Hemoglobin 14.8 g/dL (13.0-16.5); Lymphocyte # 2.12 X10^3/ul (0.83-4.51); Lymphocyte % 35.2 % (19-41); Mean Corp Hgb Conc 32.4 g/dL (32-36); Mean Corpuscular Hgb 27.7 pg (27.0-32.0); Mean Corpuscular Volume 85.4 fL (80-94); Mean Platelet Vol. 9.8 fl (6.2-12.0); Monocyte# 0.59 X10^3/uL; Monocyte% 9.8 % (0-10); NRBC Flagged by Analyzer 0 % (0-5); Neutrophil # 3.21 X10^3/uL (2.7-7.7); Neutrophil % 53.2 % (47-70); Platelet Count 224 K/mm3 (150-450); RBC Distribution Width CV 12.5 % (11.6-14.6); RBC Distribution Width SD 38.8 fl (35.1-43.9); Red Blood Count 5.35 M/mm3 (4.6-6.2)
[2021-04-18 00:46] LABS: Anion Gap 4 (5-15); BUN 10 mg/dL (7-18); BUN/Creat Ratio 12.5 RATIO (10-20); Calcium,Total 8.6 mg/dL (8.5-10.1); Chloride 108 mmol/L (98-107); EST Glomerular Filtration Rate 129 mL/min (>60); Est Glom Filt Rate - Afr Amer 156 mL/min (>60); Estimated Creatinine Clearance 132.92 ml/min; Glucose 97 mg/dL (74-106); Potassium 3.8 mmol/L (3.5-5.1); Sodium Level 140 mmol/L (136-145)
[2021-04-18 01:47] VITALS: BP 112/74; PULSE 76; RESP 18; O2SAT 99
[2021-04-18] MEDS: Amox/Clavulanate 875 MG Tablet PO (01:49)
--- NOTE | 2021-04-18 23:49 | CT_ITS ---
STUDY: CT ABDOMEN AND PELVIS WITHOUT CONTRAST REASON FOR EXAM: Male, 20 years old. RLQ pain RADIATION DOSAGE (If Supplied By Facility): CTDIvol = ( 10.68 ) mGy, DLP = ( 610.99 ) mGycm TECHNIQUE: Transaxial images were obtained from the dome of the diaphragm to the symphysis pubis without oral contrast, and without intravenous contrast. Sagittal and coronal images were reconstructed. Individualized dose optimization techniques were used for this CT. COMPARISON: None. FINDINGS: Minimal right lower lobe posterior atelectasis. Otherwise visualized lung bases are unremarkable. The visualized portions of the heart are within normal limits. Normal liver. Normal gallbladder and extrahepatic biliary system. Normal spleen. Normal pancreas. Normal bilateral adrenal glands. Normal right kidney. Normal left kidney. Normal visualized stomach. Normal small intestine. Incompletely distending colon diffusely with mild thickening of the wall suggestive of diffuse colitis. The appendix is visualized and appears normal. Normal abdominal aorta. Normal inferior vena cava. Normal retroperitoneum. Normal urinary bladder. Normal visualized prostate gland. Normal abdominal wall. Normal osseous structures. CT/Abdomen/Pelvis without Cont IMPRESSION: Possible mild diffuse colitis. No acute appendicitis or bowel obstruction. Remainder of the exam unremarkable. Electronically Signed: Madhavi Perry MD at 1:23 EDT , Service support ,
== END 2021-04-18 01:49 | disposition home or self-care (01) ==
PROVIDERS: Emergency Provider Emergency Medicine; PCP Family Medicine
DX: K59.00 Constipation, unspecified (principal); K52.9 Noninfective gastroenteritis and colitis, unspecified; E11.9 Type 2 diabetes mellitus without complications; F17.210 Nicotine dependence, cigarettes, uncomplicated
CPT/HCPCS: 74176; 80048; 85025; 99284; A4216

== ENCOUNTER 2021-08-29 09:11 | Emergency (ER) | payer MEDICAID, SELFPAY ==
[2021-08-29 09:13] VITALS: BP 127/77; PULSE 84; RESP 17; TEMP 36.2; O2SAT 98; BMI 27.9
--- NOTE | 2021-08-29 09:26 | CT_ITS ---
INDICATION: bilateral flank pain EXAMINATION: CT ABDOMEN AND PELVIS WITHOUT CONTRAST - CT Abdomen And Pelvis W/O Contrast Injection TECHNIQUE: Helically acquired images were obtained of the abdomen and pelvis without oral or IV contrast. A radiation dose optimization technique was used for this scan. IV Contrast dosage and agent: None. Oral contrast: None. COMPARISON: CT abdomen/pelvis from 04/18/2021 FINDINGS: Lower thorax: Lung bases are clear. Hepatobiliary: Normal hepatic morphology. No acute findings. Gallbladder is unremarkable. Spleen: Unremarkable. Pancreas: No acute findings. No duct dilation. Adrenal glands: Unremarkable. Kidneys: No calcifications. No hydronephrosis. No acute findings. GI tract: No bowel dilation. No acute inflammatory changes. Normal appendix. Peritoneum/mesentery/retroperitoneum: No ascites or free air. No masses. No lymphadenopathy. Pelvis: Unremarkable bladder. No ascites or free air. No masses. Vasculature: No abdominal aortic or iliac aneurysm. Bones/soft tissues: No acute findings. No destructive osseous lesions. CT/Abdomen/Pelvis without Cont IMPRESSION: No acute findings. Electronically Signed: Ashutosh Butt MD at 10:13 EST Tel , Service support ,
--- NOTE | 2021-08-29 09:27 | EDS_ITS ---
HPI History of Present Illness Chief Complaint: Lower Extremity Injury Detail of Chief Complaint: Hip/abdomen pain Informant: patient Narrative Narrative: Patient presents to the emergency department with multiple complaints this morning. He states that he has had discomfort in both hips for about 3 weeks. He denies any trauma. Patient tells me he had an infection in his appendix about a month ago but did not have an appendectomy. Patient also states that he feels like he may have an infection going on because he has a sore throat. Patient states that he was tested for Covid a month ago and was negative but high has not lost taste or smell so he does not think he has Covid. Patient denies any trauma to his hips. He denies pain radiating down his legs. He denies weakness in extremities. Patient denies urinary symptoms. He does describe intermittent constipation issues. Prior similar symptoms: No PFSH PFS Medical History (Updated 08/29/21 @ 10:[address] Danelle Velazquez, DO) DM type 2 (diabetes mellitus, type 2) Home Medications naproxen 500 mg PO BID #14 tab 08/29/21 [Rx Last Taken Unknown] Allergy/AdvReac Type Severity Reaction Status Date / Time No Known Allergies Allergy Verified 08/29/21 09:12 Social History (System 10/29/19 @ 08:36 by Jaz Katz) Smoking Status: Current every day smoker tobacco type: cigarettes ROS ROS ED Constitutional Constitutional ED: Reports systems reviewed and no addt'l complaints, except as documented; Denies body ache(s), change in weight or chills Eyes Eyes: Denies acute decrease in peripheral vision, change in vision, double vision or loss of vision ENT ENT ED: Reports none and sore throat; Denies ear pain, lip swelling, loss taste/smell, neck pain or otalgia Cardiovascular Cardiovascular: Reports none; Denies abdominal pain, chest pain with activity, leg edema, lightheadedness, palpitations, rapid heart rate or syncope Respiratory/Chest Respiratory/Chest: Reports none; Denies change in mental status, dry cough, dyspnea, hemoptysis, shortness of breath at rest or shortness of breath with exertion Gastrointestinal Gastrointestinal: Reports none and abdominal pain; Denies change in stool character, diarrhea, hematemesis, hematochezia, melena, rectal bleeding or vomiting Genitourinary Genitourinary ED: Reports none; Denies abdominal discomfort, anuria, dysuria, genital pain or polyuria Musculoskeletal Musculoskeletal: Reports none and other Details: Bilateral hip pain ; Denies arthralgias, back pain, difficulty walking, extremity pain, muscle weakness or myalgias Integumentary Reports none; Denies abscess or rash Neurologic Neurologic: Reports none; Denies abnormal gait, confusion, focal weakness, frequent falls, headache(s), loss of vision, numbness, paresthesias, radicular pain, vertigo or weakness Psychiatric Psychiatric: Reports systems reviewed and no addt'l complaints, except as doc umented and none; Denies behavioral changes, confusion, difficulty concentrating, hallucinations, suicidal ideation, tactile hallucinations or visual hallucinations Endocrine Endocrinology: Denies none, cold intolerance, excessive sweating, fatigue or heat intolerance Hematologic/Lymphatic Hematologic/Lymphatic: Reports none; Denies anemia, easy bleeding or easy bruising Allergic/Immunologic Allergic/Immunologic ED: Denies as per HPI, none, lip swelling, mouth swelling, throat swelling, tongue swelling or hives EXAM Physical Exam Const Vital Signs: 08/29/21 09:13 Temperature 97.2 F L Temperature Source Temporal Pulse Rate 84 Respiratory Rate 17 Blood Pressure 127/77 H Blood Pressure Mean 93 Pulse Ox 98 Oxygen Delivery Method Room Air Positive well nourished and well developed General Appearance ED: well developed and NAD HEENT Reports TM's clear and moist mucous membranes normocephalic and atraumatic; Negative for trauma or tenderness Tympanic Membrane ED: Yes TM's clear Eyes PERRL and EOMs intact bilaterally General Eye ED: Negative for pale conjunctiva or scleral icterus Neck no lymphadenopathy, supple and no JVD General: Negative for tenderness Chest Wall inspection of chest normal and palpation of chest normal Chest: Negative for tenderness Resp normal respiratory effort and clear to auscultation bilaterally Effort and Inspection: Negative for respiratory distress or pain with movement Auscultation: Negative for rhonchi, wheezes or diminished lung sounds Cardio regular rate, regular rhythm, S1 normal heart sound, S2 normal heart sound and no murmurs Peripheral Pulses: pulses 2+ throughout GI soft to palpation, non-distended and no masses GI Narrative: Patient has diffuse tenderness to the lower abdomen bilaterally. No rebound, rigidity, or peritoneal signs. He has bilateral CVA tenderness. Back/Spine no thoracic nor lumbar tenderness Back/Spine Narrative: Patient has diffuse tenderness of her lumbar paraspinal musculature bilaterally. Negative straight leg raises. Deep tendon reflexes are plus 2 out of 4 bilaterally at the patella and Achilles. Patient has normal 5 extension. Extremity normal to inspection Extremity Narrative: Evaluation of both hips reveal some mild tenderness over both hip joints with no deformity and normal range of motion. He is neurovascular intact distally. General Extremety ED: Negative for edema General Extremity: Negative for edema Neuro oriented x3, CN's II-XII intact bilaterally, no sensory deficits noted and gait normal Sensorium / Orientation: awake, alert, oriented to person, oriented to place and oriented to time Motor Exam: strength 5/5 throughout and strength abnormal Psych mental status grossly normal Skin no rashes or lesions noted and no wounds MDM MDM MDM Narrative Medical decision making narrative: Patient's work-up unremarkable in the emergency department. He did receive an IV on arrival and received Toradol 30 mg IV. At this point etiology of patient's symptoms unclear. Patient states that he did start a new exercise program about a month ago. Patient also tells me that his primary care physician has him on naproxen but he threw away his pills. I do not see an acute or emergent disease process at this point. Patient advised to follow-up with his primary care physician within next 5 to 7 days. Lab Data Attestation: I reviewed the patient's lab results. Labs: Laboratory Results - last 24 hr 08/29/21 08/29/21 08/29/21 09:39 09:39 09:42 WBC 8.7 RBC 5.89 Hgb 16.3 Hct 49.7 MCV 84.4 MCH 27.7 MCHC 32.8 RDW Std Deviation 39.8 RDW Coeff of Jayashree 12.9 Plt Count 262 MPV 9.9 Immature Gran % (Auto) 0.200 Neut % (Auto) 53.5 Lymph % (Auto) 33.1 [place] % (Auto) 10.6 H Eos % (Auto) 2.0 Baso % (Auto) 0.6 Absolute Neuts (auto) 4.6 Absolute Lymphs (auto) 2.87 Nucleated RBC % 0 Sodium 139 Potassium 3.9 Chloride 103 Carbon Dioxide 28.0 Anion Gap 8 BUN 8 Creatinine 0.77 Estim Creat Clear Calc 132.01 Est GFR (MDRD) Af Amer 164 Est GFR (MDRD) Non-Af 136 BUN/Creatinine Ratio 10.4 Glucose 77 Calcium 9.2 Urine Color Yellow Urine Clarity Sl. Cloudy Urine pH 6.0 Ur Specific [place] 1.020 Urine Protein Negative Urine Glucose (UA) Normal Urine Ketones Negative Urine Occult Blood Negative Urine Nitrite Negative Urine Bilirubin Negative Urine Urobilinogen Normal Ur Leukocyte Esterase 25 H Urine RBC 0 SEEN Urine WBC 0-5 SEEN Ur Squamous Epith Cells 0-5 SEEN Urine Bacteria RARE Urine Mucus 2+ Radiography Diagnostic Testing: Clinical Impression(s) from Imaging Studies Abdomen/Pelvis CT 08/29/21 09:26 IMPRESSION: No acute findings. Electronically Signed: Ashutosh Butt MD at 10:13 EST Tel , Service support , Discharge Plan Triage Chief Complaint: Lower Extremity Injury ED Provider: Danelle Velazquez Dx/Rx/DC Orders Clinical Impression: Back pain, Acute hip pain Instructions: ED Back and Neck Pain, General, ED Pain, Acute, Uncertain Cause Prescriptions: New naproxen 500 MG tablet 500 mg PO BID Qty: 14 RF: 0 Primary Care Provider: Huber Hall Referrals: Huber Hall MD [Primary Care Provider] - 5-7 Days Disposition Disposition: Home, Self Care
[2021-08-29 09:46] LABS: Absolute Lymphocyte Count 2.87 X10^3/uL (0.83-4.51); Absolute Neutrophil Count 4.6 X10^3/uL (2.0-7.7); Basophil# 0.05 X10^3/uL; Basophil% 0.6 % (0-1); Eosinophil# 0.17 X10^3/uL; Hematocrit 49.7 % (40-54); Hemoglobin 16.3 g/dL (13.0-16.5); Lymphocyte # 2.87 X10^3/ul (0.83-4.51); Lymphocyte % 33.1 % (19-41); Mean Corp Hgb Conc 32.8 g/dL (32-36); Mean Corpuscular Hgb 27.7 pg (27.0-32.0); Mean Corpuscular Volume 84.4 fL (80-94); Mean Platelet Vol. 9.9 fl (6.2-12.0); Monocyte# 0.92 X10^3/uL; Monocyte% 10.6 % (0-10); NRBC Flagged by Analyzer 0 % (0-5); Neutrophil # 4.64 X10^3/uL (2.7-7.7); Neutrophil % 53.5 % (47-70); Platelet Count 262 K/mm3 (150-450); RBC Distribution Width CV 12.9 % (11.6-14.6); RBC Distribution Width SD 39.8 fl (35.1-43.9); Red Blood Count 5.89 M/mm3 (4.6-6.2); White Blood Count 8.7 K/mm3 (4.4-11.0)
[2021-08-29] MEDS: Ketorolac 30 MG/ML Syringe IV (09:51)
[2021-08-29] MEDS: 0.9% Normal Saline 1,000 ML 150 ML IV (09:53)
[2021-08-29 09:58] LABS: Anion Gap 8 (5-15); BUN 8 mg/dL (7-18); BUN/Creat Ratio 10.4 RATIO (10-20); Calcium,Total 9.2 mg/dL (8.5-10.1); Chloride 103 mmol/L (98-107); Creatinine, Serum 0.77 mg/dL (0.70-1.30); EST Glomerular Filtration Rate 136 mL/min (>60); Est Glom Filt Rate - Afr Amer 164 mL/min (>60); Estimated Creatinine Clearance 132.01 ml/min; Glucose 77 mg/dL (74-106); Potassium 3.9 mmol/L (3.5-5.1); Sodium Level 139 mmol/L (136-145)
[2021-08-29 10:04] LABS: Red Blood Cells-Urine 0 SEEN /hpf (0-5)
[2021-08-29 10:08] LABS: Color, Urine Yellow (Yellow); Glucose, Dipstick Normal (Normal); Ketone-Dipstick Negative (Negative); Leukocyte Esterase-Dipstick 25 /ul (Negative); Nitrite-Dipstick Negative (Negative); Occult Blood-Urine Negative /ul (Negative); Protein-Dipstick Negative (Negative); Urine Bilirubin Dipstick Negative (Negative); Urine Clarity Sl. Cloudy (Clear); Urine Urobilinogen Normal (Normal)
[2021-08-29 10:15] LABS: Bacteria RARE /hpf (None Seen); Mucous, Urine 2+ /hpf (<or=2+); Squamous Epithelial Cells - UA 0-5 SEEN /hpf (0-5); White Blood Cells 0-5 SEEN /hpf (0-5)
[2021-08-29 10:37] VITALS: BP 150/92; PULSE 62; RESP 18; O2SAT 100
== END 2021-08-29 10:42 | disposition home or self-care (01) ==
PROVIDERS: Emergency Provider Emergency Medicine; PCP Family Medicine
DX: M54.9 Dorsalgia, unspecified (principal); M25.552 Pain in left hip; M25.551 Pain in right hip; R10.9 Unspecified abdominal pain; Z20.822 Contact with and (suspected) exposure to COVID-19; E11.9 Type 2 diabetes mellitus without complications; K59.00 Constipation, unspecified; Z79.1 Long term (current) use of non-steroidal anti-inflammatories (NSAID); F17.210 Nicotine dependence, cigarettes, uncomplicated
CPT/HCPCS: 74176; 80048; 81001; 85025; 87426; 96361; 96374; 99283; J7030; A4216

== ENCOUNTER 2022-01-26 12:13 | Emergency (ER) | payer MEDICAID, SELFPAY ==
[2022-01-26 12:14] VITALS: BP 128/79; PULSE 112; RESP 18; TEMP 36.8; O2SAT 96; BMI 25.3
--- NOTE | 2022-01-26 12:31 | RAD_ITS ---
HISTORY: chest pain. TECHNIQUE: XR Chest 2 Views. # of images incl. paperwork: 2. COMPARISON: None. FINDINGS: CARDIOMEDIASTINAL STRUCTURES: Cardiac silhouette not enlarged. Mediastinal contour unremarkable. LUNGS: Radiographically clear. PLEURA: No pleural effusion or pneumothorax. OSSEOUS STRUCTURES: Unremarkable. RAD/Chest PA and Lateral IMPRESSION: No radiographic evidence of acute cardiopulmonary disease. at 1304 Reported and signed by: Halle Luna MD Electronically Signed: Halle Luna MD at 13:03 EDT ,
--- NOTE | 2022-01-26 12:32 | EKG12_ITS ---
Test Reason : CP Blood Pressure : / mmHG Vent. Rate : 096 BPM Atrial Rate : 096 BPM P-R Int : 134 ms QRS Dur : 092 ms QT Int : 330 ms P-R-T Axes : 025 035 014 degrees QTc Int : 416 ms Normal sinus rhythm Normal ECG Confirmed by FELI URRUTIA, TRESSA ([id number]), editor in chief newspaper DAVID DAVISON ([id number]) on 01/29/2022 9:17:55 AM Referred By: PL Confirmed By:TRESSA EDMOND MD
--- NOTE | 2022-01-26 12:32 | EDS_ITS ---
HPI History of Present Illness Chief Complaint: Chest Pain Informant: patient Narrative Narrative: Patient states he feels like he has a blocked artery. I then try to get further information. He states it is his heart. I am able to get that he has had left-sided chest discomfort that radiates a little bit toward the left shoulder. This is been going on for about 3 days. He is not short of breath but he has been having a nonproductive cough. No pleuritic pain. No leg pain or swelling. He has no travel surgery immobilization personal or family history of DVT or PE. Patient then states he might be having a stroke rather than heart attack. However his symptoms do not changes the cause of this. He then tells me he had a stroke when he was 11 years old. I asked him what symptoms he had. He states it was literally the worst feeling in the world. However, he cannot state what the feeling was. There is also report of diabetes and of high blood pressure. He states if he stays up for more than 15 or 16 hours his blood pressure goes up. Sometimes his blood sugar he knows is off. He has never been treated the best I can tell for either 1 of these diseases. He has a mother with some unknown kidney problem but evidently no other known acute problems. He does state there is a high rate of obesity in his family. He is a smoker but smokes just socially and does not even smoke every day. He occasionally smokes marijuana. [facility] Medical History Bipolar 1 disorder DM type 2 (diabetes mellitus, type 2) Home Medications naproxen 500 mg PO BID #14 tab 08/29/21 [Rx Last Taken Unknown] Allergy/AdvReac Type Severity Reaction Status Date / Time No Known Allergies Allergy Verified 01/26/22 12:16 Social History Smoking Status: Current every day smoker tobacco type: cigarettes ROS ROS ED Constitutional Constitutional ED: Denies chills or fever(s) Eyes Eyes: Denies blurry vision or change in vision ENT ENT ED: Denies rhinorrhea or sore throat Cardiovascular Cardiovascular: Reports as per HPI Respiratory/Chest Respiratory/Chest: Reports cough; Denies sputum Gastrointestinal Gastrointestinal: Denies nausea or vomiting Genitourinary Genitourinary ED: Denies dysuria Musculoskeletal Musculoskeletal: Denies myalgias or neck pain Integumentary Denies rash Neurologic Neurologic: Denies headache(s), paresthesias or weakness Psychiatric Psychiatric: Reports anxiety, depression and other Details: Bipolar. Endocrine Endocrinology: Denies polydipsia or polyuria Hematologic/Lymphatic Hematologic/Lymphatic: Denies easy bleeding or easy bruising Allergic/Immunologic Allergic/Immunologic ED: Denies urticaria EXAM Physical Exam Const Vital Signs: 01/26/22 12:14 01/26/22 12:22 Temperature 98.2 F Temperature Source Temporal Pulse Rate 112 H Respiratory Rate 18 Respiratory Effort Normal Non-Labored Blood Pressure 128/79 H Blood Pressure Mean 95 Pulse Ox 96 Oxygen Delivery Method Room Air Positive well nourished and well developed Constitutional Narrative: Patient walked back from triage. He is comfortable and nontoxic. No dyspnea with ambulation. General Appearance ED: well developed and NAD HEENT Reports moist mucous membranes normocephalic Eyes PERRL and EOMs intact bilaterally Neck supple and no JVD Chest Wall inspection of chest normal Chest Narrative: No rashes or lesions. He does have reproducible left upper chest wall tenderness Resp normal respiratory effort and clear to auscultation bilaterally Resp Narrative: No pain with deep breath Effort and Inspection: Negative for respiratory distress Auscultation: Negative for rales, rhonchi or wheezes Cardio regular rate, regular rhythm and S1 normal heart sound Rate: other GI normal to inspection, nondistended, normoactive bowel sounds Back/Spine no CVA tenderness General Back: CVA tenderness Extremity normal to inspection Extremity Narrative: No edema, cords, asymmetry, distended veins or tenderness along the deep venous system. Neuro Sensorium / Orientation: awake and alert Skin no rashes or lesions noted MDM MDM MDM Narrative Medical decision making narrative: Patient CBC was normal. Electrolytes are overall unremarkable. Troponin is negative despite days of symptoms. His D- dimer was elevated. We did this because he had a heart rate of 112 and his symptoms. Chest x-ray is negative. CT scan of the chest/angiogram was also negative. Patient states there is no way he has COVID because he feels too well and he can eat and smell and taste. Patient has reproducible left-sided chest pain on exam. I do not think this represents acute coronary syndrome, dissection, pulmonary embolus or pneumothorax. I think he is safe for discharge. Symptoms should resolve with symptomatic treatment Lab Data Attestation: I reviewed the patient's lab results. Labs: Laboratory Results - last 24 hr 01/26/22 01/26/22 01/26/22 12:40 12:40 12:40 WBC 8.3 RBC 5.55 Hgb 15.8 Hct 48.2 MCV 86.8 MCH 28.5 MCHC 32.8 RDW Std Deviation 41.3 RDW Coeff of Jayashree 13.1 Plt Count 198 MPV 9.5 Immature Gran % (Auto) 0.200 Neut % (Auto) 63.9 Lymph % (Auto) 22.2 [place] % (Auto) 12.2 H Eos % (Auto) 1.0 Baso % (Auto) 0.5 Absolute Neuts (auto) 5.3 Absolute Lymphs (auto) 1.84 Nucleated RBC % 0 D-Dimer Quant (PE/DVT) 1.13 H* Sodium 139 Potassium 4.0 Chloride 109 H Carbon Dioxide 28.0 Anion Gap 2 L BUN 13 Creatinine 0.74 Estim Creat Clear Calc 142.50 Est GFR (MDRD) Af Amer 170 Est GFR (MDRD) Non-Af 141 BUN/Creatinine Ratio 17.5 Glucose 92 Calcium 9.3 Troponin I High Sens < 3 L Radiography Diagnostic Testing: Clinical Impression(s) from Imaging Studies Chest X-Ray 01/26/22 12:31 IMPRESSION: No radiographic evidence of acute cardiopulmonary disease. at 1304 Reported and signed by: Halle Luna MD Electronically Signed: Halle Luna MD at 13:03 EDT , Chest CTA 01/26/22 13:18 IMPRESSION: 1. No evidence of pulmonary embolism or aortic dissection. 2. No focal acute infiltrate is seen. Electronically Signed: Rene Alfaro MD at 13:56 EDT , EKG Initial EKG: Comments: EKG done for left-sided chest pain read by me shows a normal sinus rhythm with a rate of 96. No ventricular ectopy. No acute ST elevation or depression. [place] interval, QRS duration and QTc normal. Discharge Plan Triage Chief Complaint: Chest Pain ED Provider: Kwan Gomes Dx/Rx/DC Orders Clinical Impression: Left-sided chest wall pain, URI with cough and congestion Instructions: ED Chest Pain, Uncertain Cause Prescriptions: No Action naproxen 500 MG tablet 500 mg PO BID Qty: 14 RF: 0 Primary Care Provider: Huber Hall Referrals: Huber Hall MD [Primary Care Provider] - 3-5 Days if not improving Disposition Disposition: Home, Self Care
[2022-01-26 12:55] LABS: Absolute Lymphocyte Count 1.84 X10^3/uL (0.83-4.51); Absolute Neutrophil Count 5.3 X10^3/uL (2.0-7.7); Basophil# 0.04 X10^3/uL; Basophil% 0.5 % (0-1); Eosinophil# 0.08 X10^3/uL; Hematocrit 48.2 % (40-54); Hemoglobin 15.8 g/dL (13.0-16.5); Lymphocyte # 1.84 X10^3/ul (0.83-4.51); Lymphocyte % 22.2 % (19-41); Mean Corp Hgb Conc 32.8 g/dL (32-36); Mean Corpuscular Hgb 28.5 pg (27.0-32.0); Mean Corpuscular Volume 86.8 fL (80-94); Mean Platelet Vol. 9.5 fl (6.2-12.0); Monocyte# 1.01 X10^3/uL; Monocyte% 12.2 % (0-10); NRBC Flagged by Analyzer 0 % (0-5); Neutrophil % 63.9 % (47-70); Platelet Count 198 K/mm3 (150-450); RBC Distribution Width CV 13.1 % (11.6-14.6); RBC Distribution Width SD 41.3 fl (35.1-43.9); Red Blood Count 5.55 M/mm3 (4.6-6.2); White Blood Count 8.3 K/mm3 (4.4-11.0)
[2022-01-26 13:13] LABS: D-Dimer Quantitative (DVT/PE) 1.13 FEU/ug/m (0.27-0.49)
[2022-01-26 13:15] LABS: Anion Gap 2 (5-15); BUN 13 mg/dL (7-18); BUN/Creat Ratio 17.5 RATIO (10-20); Calcium,Total 9.3 mg/dL (8.5-10.1); Chloride 109 mmol/L (98-107); Creatinine, Serum 0.74 mg/dL (0.70-1.30); EST Glomerular Filtration Rate 141 mL/min (>60); Est Glom Filt Rate - Afr Amer 170 mL/min (>60); Glucose 92 mg/dL (74-106); Sodium Level 139 mmol/L (136-145); Troponin-I HS < 3 pg/mL (3.0-78.0)
--- NOTE | 2022-01-26 13:18 | CT_ITS ---
STUDY: CTA CHEST REASON FOR EXAM: Male, 21 years old. Chest pain, possible pulmonary embolism. RADIATION DOSAGE (If Supplied By Facility): CTDIvol = ( 10.37 ) mGy, DLP = ( 213.48 ) mGycm TECHNIQUE: The examination was performed with the intravenous administration of IV 100mL Isovue-370. Post-processing of the angiographic images was performed, with multiplanar reformation and 3D reconstruction. Individualized dose optimization techniques were used for this CT. COMPARISON: None. FINDINGS: Normal enhancement of the main pulmonary artery and right and left pulmonary arteries. Normal enhancement of the bilateral peripheral pulmonary arteries. There is no demonstrated pulmonary embolism. Normal thoracic aorta and visualized great vessels. There is no demonstrated aortic dissection. Normal heart and pericardium. Normal mediastinum. Normal hilar regions. Normal visualized trachea and bronchi. Hazy increased densities in the dependent posterior lower lungs likely due to hypoventilation. No focal infiltrate is seen. There are no pleural effusions. Normal chest wall structures. Increased kyphosis of the thoracic spine. No demonstrated acute osseous changes. The visualized portions of the upper abdomen demonstrate no acute process. The liver is partially visualized. CT/CTA Chest W/WO Contrast IMPRESSION: 1. No evidence of pulmonary embolism or aortic dissection. 2. No focal acute infiltrate is seen. Electronically Signed: Rene Alfaro MD at 13:56 EDT ,
[2022-01-26 14:35] VITALS: BP 124/75; PULSE 73; RESP 16; O2SAT 100
== END 2022-01-26 14:37 | disposition home or self-care (01) ==
PROVIDERS: Emergency Provider Emergency Medicine; PCP Family Medicine; Visit Provider Emergency Medicine
DX: R07.9 Chest pain, unspecified (principal); F31.9 Bipolar disorder, unspecified; E11.9 Type 2 diabetes mellitus without complications; R05.9 Cough, unspecified; F17.210 Nicotine dependence, cigarettes, uncomplicated
CPT/HCPCS: 71046; 71275; 80048; 84484; 85025; 85379; 93005; 99284; Q9967; A4216

== ENCOUNTER 2022-02-19 15:19 | Emergency (ER) | payer MEDICAID, SELFPAY ==
[2022-02-19 15:20] VITALS: BP 118/60; PULSE 81; RESP 18; TEMP 36.6; O2SAT 97; BMI 25.3
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
[2022-02-19] MEDS: LORazepam 1 MG Tablet PO (16:51)
[2022-02-19 16:54] LABS: Absolute Lymphocyte Count 1.91 X10^3/uL (0.83-4.51); Absolute Neutrophil Count 6.3 X10^3/uL (2.0-7.7); Basophil# 0.04 X10^3/uL; Basophil% 0.4 % (0-1); Eosinophil# 0.03 X10^3/uL; Eosinophils% 0.3 % (0-5); Hematocrit 51.2 % (40-54); Hemoglobin 16.8 g/dL (13.0-16.5); Lymphocyte # 1.91 X10^3/ul (0.83-4.51); Lymphocyte % 21.4 % (19-41); Mean Corp Hgb Conc 32.8 g/dL (32-36); Mean Corpuscular Hgb 28.4 pg (27.0-32.0); Mean Corpuscular Volume 86.6 fL (80-94); Mean Platelet Vol. 10.4 fl (6.2-12.0); Monocyte# 0.61 X10^3/uL; Monocyte% 6.8 % (0-10); NRBC Flagged by Analyzer 0.2 % (0-5); Neutrophil # 6.27 X10^3/uL (2.7-7.7); Neutrophil % 70.5 % (47-70); Platelet Count 249 K/mm3 (150-450); RBC Distribution Width CV 12.4 % (11.6-14.6); RBC Distribution Width SD 39.5 fl (35.1-43.9); Red Blood Count 5.91 M/mm3 (4.6-6.2); White Blood Count 8.9 K/mm3 (4.4-11.0)
[2022-02-19 17:11] LABS: Anion Gap 6 (5-15); BUN 11 mg/dL (7-18); BUN/Creat Ratio 16.7 RATIO (10-20); Calcium,Total 9.4 mg/dL (8.5-10.1); Chloride 107 mmol/L (98-107); Creatinine, Serum 0.66 mg/dL (0.70-1.30); EST Glomerular Filtration Rate 162 mL/min (>60); Est Glom Filt Rate - Afr Amer 196 mL/min (>60); Estimated Creatinine Clearance 159.77 ml/min; Glucose 94 mg/dL (74-106); Sodium Level 139 mmol/L (136-145)
[2022-02-19 17:22] LABS: Amphetamine Urine VISTA NEGATIVE (<1000 ng/mL); Barbiturate Urine VISTA NEGATIVE (< 200 ng/mL); Benzodiazepine Urine VISTA NEGATIVE (< 200 ng/mL); Cocaine Urine VISTA NEGATIVE (< 300 ng/mL); Ecstacy Urine VISTA NEGATIVE (< 500 ng/mL); Methadone Urine VISTA NEGATIVE (< 300 ng/mL); PCP Urine VISTA NEGATIVE (< 25 ng/mL); THC Urine VISTA POSITIVE (< 50 ng/mL); Vista UDS pH Range 7
[2022-02-19 17:29] LABS: Alcohol, Blood (Medical)-Serum < 3.0 mg/dL
--- NOTE | 2022-02-19 17:52 | NURSING ---
SQUAD COMING AT 2030
--- NOTE | 2022-02-19 17:54 | CM.ED ---
Social Work Note Pt has been accepted to [facility]. Accepting physician is Joanne Garcia. RN to RN [phone] option 1. Pt is going to [facility]. [place] faxed to [facility]. Lea Hendricks EMBROIDERY SPECIALIST, FINANCIAL SALES PROFESSIONAL
[2022-02-19 18:17] VITALS: BP 123/79; PULSE 85; RESP 16; O2SAT 96
[2022-02-19 19:39] VITALS: RESP 16
== END 2022-02-19 20:20 ==
PROVIDERS: Emergency Provider Emergency Medicine; PCP Family Medicine; Visit Provider Emergency Medicine
DX: F31.9 Bipolar disorder, unspecified (principal); R45.851 Suicidal ideations; Z20.822 Contact with and (suspected) exposure to COVID-19; F17.210 Nicotine dependence, cigarettes, uncomplicated
CPT/HCPCS: 80048; 80307; 82077; 85025; 87811; 99285

== ENCOUNTER 2022-08-14 17:34 | Emergency (ER) | payer MEDICAID, SELFPAY ==
[2022-08-14 17:36] VITALS: BP 97/86; PULSE 76; RESP 16; TEMP 36.2; O2SAT 99; BMI 26.4
--- NOTE | 2022-08-14 19:12 | EDS_ITS ---
HPI History of Present Illness Chief Complaint: Substance Abuse Informant: patient Onset/Context/Timing Onset: Today (Several hours ago) Context: Gradual Onset (After smoking marijuana that was not his) Timing: Continuous Narrative Narrative: Patient states he smoked a roommates marijuana with him today, and felt hyperalert like he would expect afterwards. But then subsequently, he had some lightheadedness, he felt like his blood pressure was low although he did not check it, he states the only thing that is keeping my blood pressure up is eating these, as he points to a bag of [employer] brand snacks. He states he has some mild nonpleuritic chest discomfort left side and some mild left upper quadrant pain. He had some transient nausea that has not persisted. He had no syncope or near syncope. He denies any other symptoms right now. [facility] Medical History Bipolar 1 disorder Home Medications naproxen 500 mg tablet 500 mg PO BID #14 tabs 08/29/21 [Rx Last Taken Unknown] ziprasidone HCl 20 mg capsule 20 mg PO BID 02/19/22 [History Last Taken Unknown] Allergy/AdvReac Type Severity Reaction Status Date / Time No Known Allergies Allergy Verified 08/14/22 17:39 Social History Smoking Status: Current every day smoker tobacco type: cigarettes alcohol intake: never substance use type: marijuana ROS ROS ED Constitutional Constitutional ED: Denies chills or fever(s) Eyes Eyes: Denies change in vision or diplopia ENT ENT ED: Denies rhinorrhea or sore throat Cardiovascular Cardiovascular: Reports as per HPI, chest pain and lightheadedness; Denies palpitations Respiratory/Chest Respiratory/Chest: Denies cough or dyspnea Gastrointestinal Gastrointestinal: Reports abdominal pain and nausea; Denies diarrhea or vomiting Genitourinary Genitourinary ED: Denies dysuria or hematuria Musculoskeletal Musculoskeletal: Denies back pain or neck pain Integumentary Denies abscess or rash Neurologic Neurologic: Denies headache(s), paresthesias or weakness Psychiatric Psychiatric: Denies anxiety or suicidal thoughts EXAM Physical Exam Const Vital Signs: 08/14/22 17:36 08/14/22 20:32 Temperature 97.2 F L 98.9 F Temperature Source Temporal Pulse Rate 76 66 Respiratory Rate 16 16 Blood Pressure 97/86 H 134/78 H Blood Pressure Mean 89 Pulse Ox 99 99 Oxygen Delivery Method Room Air Positive well nourished and well developed Constitutional Narrative: Well-appearing while sitting up in bed, eating, conversive in full sentences. General Appearance ED: well developed and NAD HEENT Reports moist mucous membranes normocephalic and atraumatic Eyes PERRL and EOMs intact bilaterally Neck full ROM and supple Resp normal respiratory effort and clear to auscultation bilaterally Cardio regular rate, regular rhythm and no murmurs Rate: Negative for bradycardia or tachycardic GI non-distended GI Narrative: Mild subjective tenderness left upper quadrant only. No pulsatile mass. Benign abdomen. Auscultation: normoactive bowel sounds Palpation: soft Back/Spine no CVA tenderness General Back: other FROM Extremity normal to inspection General Extremety ED: Negative for edema, pulses abnormal or tenderness General Extremity: Negative for edema or pulses abnormal Neuro oriented x3, CN's II-XII intact bilaterally and no sensory deficits noted Sensorium / Orientation: awake and alert Motor Exam: strength 5/5 throughout Skin no rashes or lesions noted and no wounds MDM MDM MDM Narrative Medical decision making narrative: Patient talk screen which was done and showed marijuana only. He understands this does not rule out the possibility of fentanyl but his symptoms were not necessarily consistent with that use. His EKG is unremarkable. Chest abdominal discomfort unchanged after GI cocktail. He was observed and his vital signs are stable and he is clinically is well-appearing. Patient is reassured and discharged stable condition. Lab Data Attestation: I reviewed the patient's lab results. Labs: Laboratory Results - last 24 hr 08/14/22 19:22 Urine Opiates Screen NEGATIVE Urine Methadone Screen NEGATIVE Ur Barbiturates Screen NEGATIVE Ur Phencyclidine Scrn NEGATIVE Ur Amphetamines Screen NEGATIVE MDMA (Ecstasy) Screen NEGATIVE U Benzodiazepines Scrn NEGATIVE Urine Cocaine Screen NEGATIVE U Cannabinoids Screen POSITIVE H Ur Drug Screen Comment Rhythm Strip Rhythm Strip: Sinus Rhythm Rate: 70 Ectopy: None EKG Initial EKG: Attestation: I personally reviewed and interpreted this EKG as follows: Interpretation: No Acute Injury Pattern (Normal EKG) and Sinus Arrythmia Discharge Plan Triage Chief Complaint: Substance Abuse ED Provider: Anil Michele Dx/Rx/DC Orders Clinical Impression: Marijuana use, Left-sided chest pain, Left upper quadrant pain Instructions: ED Chest Pain, Noncardiac Prescriptions: No Action naproxen 500 MG tablet 500 mg PO BID Qty: 14 0RF ziprasidone HCl 20 mg capsule 20 mg PO BID Label Comments: TAKE 1 CAPSULE BY MOUTH EVERY DAILY WITH FOOD Primary Care Provider: Huber Hall Referrals: Huber Hall MD [Primary Care Provider] - 1 Week if not improving Disposition Disposition: Home, Self Care Discharge Date/Time: 08/14/22 20:46
--- NOTE | 2022-08-14 19:12 | EKG12_ITS ---
Test Reason : EXAM Blood Pressure : / mmHG Vent. Rate : 062 BPM Atrial Rate : 062 BPM P-R Int : 148 ms QRS Dur : 088 ms QT Int : 380 ms P-R-T Axes : 030 025 033 degrees QTc Int : 385 ms Sinus rhythm with marked sinus arrhythmia Otherwise normal ECG Confirmed by SHI URRUTIA, KYLE ([id number]), editorial cartoonist DAVID DAVISON ([id number]) on 08/20/2022 9:31:57 A M Referred By: Confirmed By:NAVNEET OSULLIVAN MD
[2022-08-14] MEDS: Mag Hydrox/Al Hydrox/Simeth 30 ML UDC PO (19:37)
[2022-08-14 19:41] LABS: Amphetamine Urine VISTA NEGATIVE (<1000 ng/mL); Barbiturate Urine VISTA NEGATIVE (< 200 ng/mL); Benzodiazepine Urine VISTA NEGATIVE (< 200 ng/mL); Cocaine Urine VISTA NEGATIVE (< 300 ng/mL); Ecstacy Urine VISTA NEGATIVE (< 500 ng/mL); Methadone Urine VISTA NEGATIVE (< 300 ng/mL); PCP Urine VISTA NEGATIVE (< 25 ng/mL); THC Urine VISTA POSITIVE (< 50 ng/mL); Vista UDS pH Range 6
[2022-08-14 20:32] VITALS: BP 134/78; PULSE 66; RESP 16; TEMP 37.2; O2SAT 99
== END 2022-08-14 20:45 | disposition home or self-care (01) ==
PROVIDERS: Emergency Provider Emergency Medicine; PCP Family Medicine; Visit Provider Emergency Medicine
DX: F12.90 Cannabis use, unspecified, uncomplicated (principal); F31.9 Bipolar disorder, unspecified; R07.9 Chest pain, unspecified; R10.12 Left upper quadrant pain; Z79.899 Other long term (current) drug therapy; F17.210 Nicotine dependence, cigarettes, uncomplicated
CPT/HCPCS: 80307; 93005; 99283

== ENCOUNTER 2022-09-10 17:32 | Emergency (ER) | payer MEDICAID, SELFPAY ==
[2022-09-10 17:33] VITALS: BP 131/92; PULSE 90; RESP 16; TEMP 36.2; O2SAT 97; BMI 27.1
== END 2022-09-10 18:42 | disposition left against medical advice (07) ==
PROVIDERS: PCP Family Medicine
DX: Z53.21 Procedure and treatment not carried out due to patient leaving prior to being seen by health care provider (principal)

== ENCOUNTER 2022-11-18 17:18 | Emergency (ER) | payer MEDICAID, SELFPAY ==
[2022-11-18 17:20] VITALS: BP 148/83; PULSE 96; RESP 18; TEMP 35.9; O2SAT 99; BMI 26.1
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
[2022-11-18 19:23] VITALS: RESP 18
[2022-11-18 19:55] LABS: Absolute Lymphocyte Count 2.37 X10^3/uL (0.83-4.51); Absolute Neutrophil Count 5.4 X10^3/uL (2.0-7.7); Basophil# 0.05 X10^3/uL; Basophil% 0.6 % (0-1); Eosinophil# 0.05 X10^3/uL; Eosinophils% 0.6 % (0-5); Hematocrit 48.2 % (40-54); Lymphocyte # 2.37 X10^3/ul (0.83-4.51); Lymphocyte % 28.1 % (19-41); Mean Corp Hgb Conc 33.2 g/dL (32-36); Mean Corpuscular Hgb 27.3 pg (27.0-32.0); Mean Corpuscular Volume 82.3 fL (80-94); Mean Platelet Vol. 9.3 fl (6.2-12.0); Monocyte# 0.58 X10^3/uL; Monocyte% 6.9 % (0-10); NRBC Flagged by Analyzer 0 % (0-5); Neutrophil # 5.36 X10^3/uL (2.7-7.7); Neutrophil % 63.6 % (47-70); Platelet Count 258 K/mm3 (150-450); RBC Distribution Width CV 12.6 % (11.6-14.6); RBC Distribution Width SD 37.6 fl (35.1-43.9); Red Blood Count 5.86 M/mm3 (4.6-6.2); White Blood Count 8.4 K/mm3 (4.4-11.0)
[2022-11-18 20:07] LABS: Alcohol, Blood (Medical)-Serum < 3.0 mg/dL
[2022-11-18 20:08] LABS: Amphetamine Urine VISTA NEGATIVE (<1000 ng/mL); Anion Gap 6 (5-15); BUN 12 mg/dL (7-18); BUN/Creat Ratio 15.7 RATIO (10-20); Barbiturate Urine VISTA NEGATIVE (< 200 ng/mL); Benzodiazepine Urine VISTA NEGATIVE (< 200 ng/mL); Calcium,Total 9.7 mg/dL (8.5-10.1); Chloride 107 mmol/L (98-107); Cocaine Urine VISTA NEGATIVE (< 300 ng/mL); Creatinine, Serum 0.76 mg/dL (0.70-1.30); EST Glomerular Filtration Rate 135 mL/min (>60); Ecstacy Urine VISTA NEGATIVE (< 500 ng/mL); Est Glom Filt Rate - Afr Amer 164 mL/min (>60); Estimated Creatinine Clearance 137.58 ml/min; Glucose 100 mg/dL (74-106); Methadone Urine VISTA NEGATIVE (< 300 ng/mL); PCP Urine VISTA NEGATIVE (< 25 ng/mL); Potassium 3.7 mmol/L (3.5-5.1); Sodium Level 139 mmol/L (136-145); THC Urine VISTA POSITIVE (< 50 ng/mL); Vista UDS pH Range 7
--- NOTE | 2022-11-18 20:10 | EDS_ITS ---
HPI HPI - Psych History of Present Illness Chief Complaint: Mental Health Narrative Narrative: 22-year-old male presenting for evaluation. Apparently he had talked to the counseling center before coming. He was telling them that he wanted to kill somebody. When I spoke with him he felt like it was somebody from work. He states he was another person at [employer]. 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 He states that he thought there was something in the garbage disposal. He states that he is not supposed to put chicken bones in there. He stopped the machine because he heard something that sounded like bones and there. He states that when he opened it up he noticed that there was no bones and there was a fork off to the left that was making the noise he heard. He states that the other candy supervisor called him a dumbass. He became very angry and states that he wants to hurt him very badly. He did not give me a plan. He does come across as very agitated and angry. I did ask him if the wanted to beat him up and he stated to me that he wanted to do more than that. He was very vague about what he would do. [facility] Medical History Bipolar 1 disorder Home Medications naproxen 500 mg tablet 500 mg PO BID #14 tabs 08/29/21 [Rx Last Taken Unknown] ziprasidone HCl 20 mg capsule 20 mg PO BID 02/19/22 [History Last Taken Unknown] Allergy/AdvReac Type Severity Reaction Status Date / Time No Known Allergies Allergy Verified 11/18/22 17:22 Social History Smoking Status: Current every day smoker tobacco type: cigarettes alcohol intake: never substance use type: marijuana ROS ROS ED Constitutional Constitutional ED: Denies chills, fever(s) or sweats Eyes Eyes: Denies blurry vision or change in vision ENT ENT ED: Denies ear pain or sore throat Cardiovascular Cardiovascular: Denies chest pain, palpitations or racing heartbeat Respiratory/Chest Respiratory/Chest: Denies cough, dyspnea or sputum Gastrointestinal Gastrointestinal: Denies abdominal pain, constipation, diarrhea, nausea or vomiting Genitourinary Genitourinary ED: Denies dysuria, hematuria or urinary frequency Musculoskeletal Musculoskeletal: Denies arthralgias, myalgias or neck pain Integumentary Denies abscess, Abrasions or rash Neurologic Neurologic: Denies headache(s), paresthesias or weakness Psychiatric Psychiatric: Reports anxiety and other Details: Wanting to hurt another person ; Denies depression or suicidal ideation Endocrine Endocrinology: Denies polydipsia or polyuria EXAM Physical Exam Const Vital Signs: 11/18/22 17:20 11/18/22 19:23 11/18/22 21:23 Temperature 96.7 F L Temperature Source Temporal Pulse Rate 96 Respiratory Rate 18 18 18 Blood Pressure 148/83 H Blood Pressure Mean 104 Pulse Ox 99 Oxygen Delivery Method Room Air Positive well nourished General Appearance ED: irritable and NAD; Negative for pallor HEENT Reports moist mucous membranes normocephalic and atraumatic Eyes PERRL and EOMs intact bilaterally Resp normal respiratory effort and clear to auscultation bilaterally Auscultation: Negative for rales, rhonchi or wheezes Cardio Rate: regular rate Rhythm: regular rhythm GI non-tender Neuro oriented x3 and CN's II-XII intact bilaterally Psych Appearance: grossly normal Attitude: bizarre, evasive, agitated and aggressive Activity / Motor Behavior: fidgetting and disorganized Mood & Affect: irritable and hostile affect Thought Content: homicidality Attention / Concentration: attention grossly impaired Memory / Cognition: memory grossly intact Insight: poor Judgement: poor Skin General Skin Exam: Negative for jaundice or pallor MDM MDM MDM Narrative Medical decision making narrative: I had the patient seen by bilingual social worker. She states that she did talk to the counseling center and he was reporting to them that he wanted to kill the other person in the dish room. He told the bilingual social worker here that he wanted to burn his house down. He did not care if anybody else got hurt. At this point the patient was pink slipped. Appropriate screening lab work was obtained. CBC and BMP within normal limits. EtOH negative. Urine drug screen positive for cannabinoids. Rapid COVID-negative. Feel the patient would benefit from inpa tient care at this point since he is expressing homicidal ideation. He is medically clear at this point. scrap yard worker did find him a place at [facility]. Patient will be transported when a squad is available. Patient signed out to incoming ED physician for monitoring until that can occur. Impression: 1. History of bipolar disorder 2. Homicidal ideation Lab Data Attestation: I reviewed the patient's lab results. Labs: Laboratory Results - last 24 hr 11/18/22 11/18/22 11/18/22 19:36 19:36 19:36 WBC 8.4 RBC 5.86 Hgb 16.0 Hct 48.2 MCV 82.3 MCH 27.3 MCHC 33.2 RDW Std Deviation 37.6 RDW Coeff of Jayashree 12.6 Plt Count 258 MPV 9.3 Immature Gran % (Auto) 0.200 Neut % (Auto) 63.6 Lymph % (Auto) 28.1 Laurens % (Auto) 6.9 Eos % (Auto) 0.6 Baso % (Auto) 0.6 Absolute Neuts (auto) 5.4 Absolute Lymphs (auto) 2.37 Nucleated RBC % 0 Sodium 139 Potassium 3.7 Chloride 107 Carbon Dioxide 26.0 Anion Gap 6 BUN 12 Creatinine 0.76 Estim Creat Clear Calc 137.58 Est GFR (MDRD) Af Amer 164 Est GFR (MDRD) Non-Af 135 BUN/Creatinine Ratio 15.7 Glucose 100 Calcium 9.7 Urine Opiates Screen Urine Methadone Screen Ur Barbiturates Screen Ur Phencyclidine Scrn Ur Amphetamines Screen MDMA (Ecstasy) Screen U Benzodiazepines Scrn Urine Cocaine Screen U Cannabinoids Screen Ur Drug Screen Comment Ethyl Alcohol < 3.0 11/18/22 19:36 WBC RBC Hgb Hct MCV MCH MCHC RDW Std Deviation RDW Coeff of Jayashree Plt Count MPV Immature Gran % (Auto) Neut % (Auto) Lymph % (Auto) Laurens % (Auto) Eos % (Auto) Baso % (Auto) Absolute Neuts (auto) Absolute Lymphs (auto) Nucleated RBC % Sodium Potassium Chloride Carbon Dioxide Anion Gap BUN Creatinine Estim Creat Clear Calc Est GFR (MDRD) Af Amer Est GFR (MDRD) Non-Af BUN/Creatinine Ratio Glucose Calcium Urine Opiates Screen NEGATIVE Urine Methadone Screen NEGATIVE Ur Barbiturates Screen NEGATIVE Ur Phencyclidine Scrn NEGATIVE Ur Amphetamines Screen NEGATIVE MDMA (Ecstasy) Screen NEGATIVE U Benzodiazepines Scrn NEGATIVE Urine Cocaine Screen NEGATIVE U Cannabinoids Screen POSITIVE H Ur Drug Screen Comment Ethyl Alcohol Discharge Plan Triage Chief Complaint: Mental Health ED Provider: Walt Vera Dx/Rx/DC Orders Prescriptions: No Action naproxen 500 MG tablet 500 mg PO BID Qty: 14 0RF ziprasidone HCl 20 mg capsule 20 mg PO BID Label Comments: TAKE 1 CAPSULE BY MOUTH EVERY DAILY WITH FOOD Primary Care Provider: Huber Hall Referrals: Huber Hall MD [Primary Care Provider] -
--- NOTE | 2022-11-18 20:34 | CM.ED ---
Addendum entered by Cheyenne Pennington 11/18/22 21:51: [facility] has no beds tonight. LEVON faxed referral to [facility]. Cheyenne ZEPEDA Original Note: LEVON Note SW called [facility]. No beds tonight but beds tomorrow. SW called [facility]. No beds tonight but beds tomorrow. SW called [facility]. No beds SW called [facility]. No beds tonight but have discharges tomorrow. LEVON called [facility]. Not accepting referrals. LEVON faxed ref[facility] to [facility]. LEVON called [facility]. They have beds. [facility]ed [facility] to [facility] Cheyenne ZEPEDA
[2022-11-18 21:23] VITALS: RESP 18
--- NOTE | 2022-11-18 22:00 | ED.RN ---
PT COMES OUT OF ROOM AND STATES THAT HE NEEDS SOMEONE TO UN-PINK SLIP HIM AT THIS TIME. CHARGE NURSE MAGDI AND THIS RN EXPLAIN TO PT THAT WE ARE UNABLE TO DO THAT AT THIS TIME. PT STATES I DON'T EVEN HAVE MY HANDLING TECH HERE TO HELP ME.
--- NOTE | 2022-11-18 22:15 | CM.ED ---
LEVON received call from [facility]. Patient accepted by [facility]. RN to RN [phone] option 1 and then they will direct the RN to the [facility]. Transportation can be set up for patient to be picked up at 8:00am tomorrow. LEVON updated event staff and MD. LEVON called [facility] and cancelled the referral as placement has been secured. Cheyenne ZEPEDA
[2022-11-18 23:00] VITALS: RESP 16
[2022-11-19] MEDS: traZODone 50 MG Tablet PO (00:04)
[2022-11-19] MEDS: hydrOXYzine 10 MG Tablet 20 MG PO (00:04)
[2022-11-19 04:20] VITALS: RESP 16
--- NOTE | 2022-11-19 06:21 | ED.RN ---
Report given to Velvet NIETO @ [facility].
[2022-11-19 06:55] VITALS: BP 126/68; PULSE 48; RESP 19; TEMP 37; O2SAT 98
[2022-11-19 07:00] VITALS: BP 124/74; PULSE 86; RESP 16; TEMP 36.9; O2SAT 99
== END 2022-11-19 08:39 ==
PROVIDERS: Emergency Provider Student in an Organized Health Care Education/Training Program; PCP Family Medicine; Visit Provider Student in an Organized Health Care Education/Training Program
DX: F31.9 Bipolar disorder, unspecified (principal); Z20.822 Contact with and (suspected) exposure to COVID-19; R45.850 Homicidal ideations; Z79.899 Other long term (current) drug therapy; F17.210 Nicotine dependence, cigarettes, uncomplicated
CPT/HCPCS: 80048; 80307; 82077; 85025; 87811; 99284

== ENCOUNTER 2023-01-03 03:51 | Emergency (ER) | payer MEDICAID, SELFPAY ==
[2023-01-03 03:55] VITALS: BP 137/84; PULSE 89; RESP 18; TEMP 36.8; O2SAT 97; BMI 29.7
--- NOTE | 2023-01-03 04:05 | EKG12_ITS ---
Test Reason : DYSRHYTHMIA Blood Pressure : / mmHG Vent. Rate : 081 BPM Atrial Rate : 081 BPM P-R Int : 150 ms QRS Dur : 088 ms QT Int : 358 ms P-R-T Axes : 021 018 029 degrees QTc Int : 415 ms Normal sinus rhythm Normal ECG Confirmed by SHI URRUTIA, KYLE ([id number]), field map editor MAXX WARREN ([id number]) on 01/06/2023 10:58:11 AM Referred By: BB Confirmed By:NAVNEET OSULLIVAN MD
--- NOTE | 2023-01-03 04:05 | EDS_ITS ---
HPI History of Present Illness Chief Complaint: Palpitations Informant: patient Narrative Narrative: 22-year-old male states for the past 3 hours he has been having palpitations, chest pain on the left side that occasionally migrates over to the right but does not radiate elsewhere, a little shortness of breath and some lightheadedness but no syncope. No pleuritic discomfort. No calf pain or swelling. He states his symptoms have been fairly constant. He has had this before but states this is different but cannot tell me how. The pain feels like burning. He states he is on Strattera for ADHD and ran out of it, so he has been without it for 1 day. PE Risk Factors: Negative for Recent Travel/Surgery, Recent Immobilization, Prior DVT or PE, Cancer or OCP + Smoking + >/=35 PFSH PFSH Medical History (Updated 01/03/23 @ 04:[address] Anil Michele MD) ADHD Bipolar 1 disorder Home Medications atomoxetine 40 mg capsule 40 mg PO DAILY #14 caps 01/03/23 [Rx Last Taken Unknown] hydroxyzine HCl 50 mg tablet 50 mg PO BID PRN Anxiety #12 tabs 01/03/23 [Rx Last Taken Unknown] trazodone 50 mg tablet 50 mg PO QHS #14 tabs 01/03/23 [Rx Last Taken Unknown] Allergy/AdvReac Type Severity Reaction Status Date / Time No Known Allergies Allergy Verified 11/18/22 17:22 Social History Smoking Status: Current every day smoker tobacco type: cigarettes alcohol intake: never substance use type: marijuana ROS ROS ED Constitutional Constitutional ED: Denies chills or fever(s) Eyes Eyes: Denies change in vision or diplopia ENT ENT ED: Denies rhinorrhea or sore throat Cardiovascular Cardiovascular: Reports chest pain, lightheadedness and palpitations; Denies syncope Respiratory/Chest Respiratory/Chest: Reports dyspnea; Denies cough Gastrointestinal Gastrointestinal: Denies abdominal pain, diarrhea, nausea or vomiting Genitourinary Genitourinary ED: Denies dysuria or hematuria Musculoskeletal Musculoskeletal: Denies back pain or neck pain Integumentary Denies abscess or rash Neurologic Neurologic: Denies headache(s), paresthesias or weakness Psychiatric Psychiatric: Denies anxiety or suicidal thoughts EXAM Physical Exam Const Vital Signs: 01/03/23 03:55 01/03/23 04:15 Temperature 98.2 F Temperature Source Temporal Pulse Rate 89 Respiratory Rate 18 Blood Pressure 137/84 H Blood Pressure Mean 101 Pulse Ox 97 Oxygen Delivery Method Room Air Room Air Positive well nourished and well developed Constitutional Narrative: Well-appearing, conversive in full sentences, no distress General Appearance ED: well developed and NAD HEENT Reports moist mucous membranes normocephalic and atraumatic Eyes PERRL and EOMs intact bilaterally Neck full ROM and supple Chest Wall inspection of chest normal and palpation of chest normal Resp normal respiratory effort and clear to auscultation bilaterally Cardio regular rate, regular rhythm and no murmurs Rate: Negative for tachycardic Peripheral Pulses: radial pulses present bilateral 2+ GI non-tender and non-distended Auscultation: normoactive bowel sounds Palpation: soft Back/Spine no CVA tenderness General Back: other FROM Extremity normal to inspection, no calf tenderness and no pedal edema General Extremety ED: Negative for edema, pulses abnormal or tenderness General Extremity: Negative for edema or pulses abnormal Neuro oriented x3, CN's II-XII intact bilaterally and no sensory deficits noted Sensorium / Orientation: awake and alert Motor Exam: strength 5/5 throughout Skin no rashes or lesions noted and no wounds Heart Score History: Moderately Suspicious ECG: Normal Age: </= 45 years Risk Factors: 1 or 2 Risk Factors Troponin: </= Normal Limit Score: 2 MDM MDM MDM Narrative Medical decision making narrative: Patient remained asymptomatic while here without any events on the monitor although while I was auscultating him, I did hear an occasional irregularity but he was not on the monitor. This is most likely consistent with PVCs in context of his symptoms where he was feeling an occasional skip. Labs are all normal, except for slightly low potassium which should not be causing these on its own, chest x-ray 2 views of my interpretation normal. His EKG is normal and no telemetry events. On further discussion he is also out of all of his other medications, the trazodone he has not taken in 1 week. It is possible that some mild withdrawal from these medications is causing this. I am given him short 2- week refill prescriptions for his medications and advising close outpatient follow-up. Lab Data Attestation: I reviewed the patient's lab results. Labs: Laboratory Results - last 24 hr 01/03/23 01/03/23 04:12 04:12 WBC 8.7 RBC 5.49 Hgb 15.3 Hct 46.5 MCV 84.7 MCH 27.9 MCHC 32.9 RDW Std Deviation 39.6 RDW Coeff of Jayashree 12.9 Plt Count 260 MPV 9.2 Immature Gran % (Auto) 0.200 Neut % (Auto) 54.0 Lymph % (Auto) 33.4 Pershing % (Auto) 10.4 H Eos % (Auto) 1.4 Baso % (Auto) 0.6 Absolute Neuts (auto) 4.7 Absolute Lymphs (auto) 2.89 Nucleated RBC % 0 Sodium 142 Potassium 3.4 L Chloride 110 H Carbon Dioxide 26.0 Anion Gap 6 BUN 15 Creatinine 0.84 Estim Creat Clear Calc 124.48 Est GFR (MDRD) Af Amer 146 Est GFR (MDRD) Non-Af 120 BUN/Creatinine Ratio 17.8 Glucose 107 H Calcium 8.7 Troponin I High Sens 4 Radiography Diagnostic Testing: Clinical Impression(s) from Imaging Studies Chest X-Ray 01/03/23 04:05 IMPRESSION: No radiographic evidence of acute cardiopulmonary disease. Electronically Signed: Gurinder Lu MD at 4:54 EDT Reading Location ID and State: [facility] / [place] Tel , Service support , Rhythm Strip Rhythm Strip: Sinus Rhythm Rate: 85 Ectopy: None EKG Initial EKG: Attestation: I personally reviewed and interpreted this EKG as follows: Interpretation: Sinus Rhythm and No Acute Injury Pattern Comments: Normal EKG Discharge Plan Triage Chief Complaint: Palpitations ED Provider: Anil Michele Dx/Rx/DC Orders Clinical Impression: Heart palpitations, Atypical chest pain, Medication refill Instructions: ED Palpitations Prescriptions: Continued atomoxetine 40 mg capsule 40 mg PO DAILY Qty: 14 0RF Changed trazodone 50 mg tablet 50 mg PO QHS Qty: 14 0RF hydroxyzine HCl 50 mg tablet 50 mg PO BID PRN (Reason: Anxiety) Qty: 12 0RF Primary Care Provider: Huber Hall Referrals: Huber Hall MD [Primary Care Provider] - 3-5 Days if not improving Disposition Disposition: Home, Self Care
--- NOTE | 2023-01-03 04:05 | RAD_ITS ---
INDICATION: chest pain EXAMINATION/TECHNIQUE: X-RAY - XR Chest 2 Views COMPARISON: January 26, 2022. FINDINGS: LINES/DEVICES: None. LUNGS: No consolidation, edema or effusion. No pneumothorax. MEDIASTINUM AND CARDIOVASCULAR STRUCTURES: Cardiac silhouette not enlarged. BONES AND SOFT TISSUES: Unremarkable. RAD/Chest PA and Lateral IMPRESSION: No radiographic evidence of acute cardiopulmonary disease. Electronically Signed: Gurinder Lu MD at 4:54 EDT ,
[2023-01-03 04:17] LABS: Absolute Lymphocyte Count 2.89 X10^3/uL (0.83-4.51); Absolute Neutrophil Count 4.7 X10^3/uL (2.0-7.7); Basophil# 0.05 X10^3/uL; Basophil% 0.6 % (0-1); Eosinophil# 0.12 X10^3/uL; Eosinophils% 1.4 % (0-5); Hematocrit 46.5 % (40-54); Hemoglobin 15.3 g/dL (13.0-16.5); Lymphocyte # 2.89 X10^3/ul (0.83-4.51); Lymphocyte % 33.4 % (19-41); Mean Corp Hgb Conc 32.9 g/dL (32-36); Mean Corpuscular Hgb 27.9 pg (27.0-32.0); Mean Corpuscular Volume 84.7 fL (80-94); Mean Platelet Vol. 9.2 fl (6.2-12.0); Monocyte% 10.4 % (0-10); NRBC Flagged by Analyzer 0 % (0-5); Neutrophil # 4.68 X10^3/uL (2.7-7.7); Platelet Count 260 K/mm3 (150-450); RBC Distribution Width CV 12.9 % (11.6-14.6); RBC Distribution Width SD 39.6 fl (35.1-43.9); Red Blood Count 5.49 M/mm3 (4.6-6.2); White Blood Count 8.7 K/mm3 (4.4-11.0)
[2023-01-03 04:34] LABS: Anion Gap 6 (5-15); BUN 15 mg/dL (7-18); BUN/Creat Ratio 17.8 RATIO (10-20); Calcium,Total 8.7 mg/dL (8.5-10.1); Chloride 110 mmol/L (98-107); Creatinine, Serum 0.84 mg/dL (0.70-1.30); EST Glomerular Filtration Rate 120 mL/min (>60); Est Glom Filt Rate - Afr Amer 146 mL/min (>60); Estimated Creatinine Clearance 124.48 ml/min; Glucose 107 mg/dL (74-106); Potassium 3.4 mmol/L (3.5-5.1); Sodium Level 142 mmol/L (136-145); Troponin-I HS 4 pg/mL (3.0-78.0)
[2023-01-03 04:58] VITALS: PULSE 80; RESP 17; O2SAT 97
== END 2023-01-03 04:58 | disposition home or self-care (01) ==
PROVIDERS: Emergency Provider Emergency Medicine; PCP Family Medicine; Visit Provider Emergency Medicine
DX: R00.2 Palpitations (principal); F31.9 Bipolar disorder, unspecified; R07.89 Other chest pain; F90.9 Attention-deficit hyperactivity disorder, unspecified type; R06.02 Shortness of breath; Z76.0 Encounter for issue of repeat prescription; F17.210 Nicotine dependence, cigarettes, uncomplicated; Z79.899 Other long term (current) drug therapy
CPT/HCPCS: 71046; 80048; 84484; 85025; 93005; 99285; A4216

== ENCOUNTER 2023-11-24 14:10 | Emergency (ER) | payer MEDICAID, SELFPAY ==
[2023-11-24 14:11] VITALS: BP 147/96; PULSE 99; RESP 18; TEMP 36.1; O2SAT 100; BMI 34.6
--- NOTE | 2023-11-24 14:54 | EDS_ITS ---
HPI History of Present Illness Chief Complaint: General Illness Detail of Chief Complaint: Patient has a long list of symptoms. Informant: patient Onset/Context/Timing Onset: Days, Weeks and Month(s) Context: - (Unable to determine because patient does not always answer questions and read HPI narrative) Timing: Intermittent Quality: Pain Location: All over and not all at once Current Severity: Mild Maximum Severity: Moderate Worsened by: Nothing specific Relieved by: Nothing Associated Symptoms Associated Symptoms: Reported 12 pound weight loss. Weight loss over the past week Narrative Narrative: Triage note was read. Patient states he was here because his doctor would not do blood work and he has cancer. Patient would not access his [facility] MyChart. Patient had multiple symptoms. It took me approximately 2 minutes to read his list of symptoms. He basically has a positive review of systems. He believes his doctor is psychotic and will not take medicine prescribed for depression and anxiety. He is on clonidine for hypertension. The first comment patient wrote on the list was that he is I am a very intelligent person he also may, he has special skills. Prior similar symptoms: Yes Recent Illness/Hospitalization: No PFSH PFS Medical History ADHD Bipolar 1 disorder Home Medications trazodone 50 mg tablet 50 mg PO QHS #14 tabs 01/03/23 [Rx Last Taken Unknown] clonidine HCl 0.1 mg tablet 0.1 mg PO QHS 11/24/23 [History Last Taken Unknown] Allergy/AdvReac Type Severity Reaction Status Date / Time No Known Allergies Allergy Verified 11/24/23 14:11 Social History Smoking Status: Current every day smoker tobacco type: cigarettes alcohol intake: never substance use type: marijuana ROS ROS ED Review of Systems ROS Unobtainable: due to mental condition and other Details: Patient essentially said yes to everything. Will document the negatives only. Eyes Eyes: Denies diplopia Cardiovascular Cardiovascular: Denies palpitations or racing heartbeat Gastrointestinal Gastrointestinal: Reports other Details: Patient denies change in color, consistency or caliber of his stool. When asked if he had a change in color he said yes. Asked what color his stool was he said brown . Asked what color was prior to turning brown. He responded brown . Genitourinary Genitourinary ED: Denies dysuria or hematuria Musculoskeletal Musculoskeletal: Denies neck pain Integumentary Denies rash Psychiatric Psychiatric: Denies anxiety or depression Endocrine Endocrinology: Reports cold intolerance Hematologic/Lymphatic Hematologic/Lymphatic: Denies anemia EXAM Physical Exam Const Vital Signs: 11/24/23 14:11 11/24/23 14:27 Temperature 97 F L Temperature Source Temporal Pulse Rate 99 Respiratory Rate 18 Respiratory Effort Normal Non-Labored Respiratory Pattern Normal Blood Pressure 147/96 H Blood Pressure Mean 113 Pulse Ox 100 Oxygen Delivery Method Room Air Positive well nourished, well developed and obese General Appearance ED: well developed and NAD; Negative for pallor Nutritional Appearance: obese HEENT HEENT Narrative: Head is atraumatic normocephalic. Ears normal. Nares patent. Posterior pharynx is normal. Eyes PERRL and EOMs intact bilaterally General Eye ED: Negative for pale conjunctiva or scleral icterus Neck no lymphadenopathy, supple and no JVD Chest Wall inspection of chest normal and palpation of chest normal Resp normal respiratory effort and clear to auscultation bilaterally Auscultation: Negative for rales or rhonchi Cardio regular rate, regular rhythm, S1 normal heart sound, S2 normal heart sound and no murmurs GI normal to inspection, nondistended, normoactive bowel sounds, non-tender, non-distended and no masses; Negative for hepatosplenomegaly Back/Spine no CVA tenderness Extremity normal to inspection General Extremety ED: Negative for edema or tenderness General Extremity: Negative for edema Neuro oriented x3, CN's II-XII intact bilaterally and no sensory deficits noted Sensorium / Orientation: alert Sensory Exam: sensory level loss detected Psych Psych Narrative: Affect is flat. Mood & Affect: depressed Skin no rashes or lesions noted, no wounds and skin turgor normal General Skin Exam: Negative for jaundice or pallor MDM MDM MDM Narrative Medical decision making narrative: Patient with a constellation of symptoms. Will obtain basic blood work since he has not had blood work in greater than a year. Suspect this is psychiatric in origin. Lab Data Attestation: I reviewed the patient's lab results. Lab results narrative: Patient's laboratory work is unremarkable. Matter fact that it is normal. There is no evidence of leukemia. Transaminases normal. Electrolyte panel normal. Talk screen was positive for cannabinoids and he was not forthcoming with regarding his drug usage. Labs: Laboratory Results - last 24 hr 11/24/23 11/24/23 15:05 16:15 WBC 7.7 RBC 5.18 Hgb 14.6 Hct 44.4 MCV 85.7 MCH 28.2 MCHC 32.9 RDW Std Deviation 39.0 RDW Coeff of Jayashree 12.5 Plt Count 229 MPV 9.3 Immature Gran % (Auto) 0.300 Neut % (Auto) 66.6 Lymph % (Auto) 21.9 Preston % (Auto) 9.9 Eos % (Auto) 0.8 Baso % (Auto) 0.5 Absolute Neuts (auto) 5.1 Absolute Lymphs (auto) 1.69 Nucleated RBC % 0 Sodium 139 Potassium 3.9 Chloride 108 H Carbon Dioxide 28.0 Anion Gap 3 L BUN 7 Creatinine 0.77 Estim Creat Clear Calc 157.56 Est GFR (MDRD) Af Amer 161 Est GFR (MDRD) Non-Af 133 BUN/Creatinine Ratio 9.1 L Glucose 95 Calcium 9.1 Total Bilirubin 0.40 AST 19 ALT 45 Alkaline Phosphatase 92 Total Protein 7.0 Albumin 3.6 Globulin 3.4 Albumin/Globulin Ratio 1.1 Urine Opiates Screen NEGATIVE Urine Methadone Screen NEGATIVE Ur Barbiturates Screen NEGATIVE Ur Phencyclidine Scrn NEGATIVE Ur Amphetamines Screen NEGATIVE MDMA (Ecstasy) Screen NEGATIVE U Benzodiazepines Scrn NEGATIVE Urine Cocaine Screen NEGATIVE U Cannabinoids Screen POSITIVE H Ur Drug Screen Comment Treatment and Re-Evaluation :: Patient was informed that his workup was unremarkable. There is no indication of cancer or any other abnormality. He needs to follow-up with his doctor. Discharge Plan Triage Chief Complaint: General Illness ED Provider: Chino Shell Dx/Rx/DC Orders Clinical Impression: Cannabis use disorder, History of hypertension, Psychosomatic disease Instructions: ED Screening Exam Medical Nonurgent Prescriptions: No Action trazodone 50 mg tablet 50 mg PO QHS Qty: 14 0RF clonidine HCl 0.1 mg tablet 0.1 mg PO QHS Primary Care Provider: Huber Hall Referrals: Huber Hall MD [Primary Care Provider] - 1-2 Weeks Disposition Disposition: Home, Self Care
[2023-11-24 15:22] LABS: Absolute Lymphocyte Count 1.69 X10^3/uL (0.83-4.51); Absolute Neutrophil Count 5.1 X10^3/uL (2.0-7.7); Basophil# 0.04 X10^3/uL; Basophil% 0.5 % (0-1); Eosinophil# 0.06 X10^3/uL; Eosinophils% 0.8 % (0-5); Hematocrit 44.4 % (40-54); Hemoglobin 14.6 g/dL (13.0-16.5); Lymphocyte # 1.69 X10^3/ul (0.83-4.51); Lymphocyte % 21.9 % (19-41); Mean Corp Hgb Conc 32.9 g/dL (32-36); Mean Corpuscular Hgb 28.2 pg (27.0-32.0); Mean Corpuscular Volume 85.7 fL (80-94); Mean Platelet Vol. 9.3 fl (6.2-12.0); Monocyte# 0.76 X10^3/uL; Monocyte% 9.9 % (0-10); NRBC Flagged by Analyzer 0 % (0-5); Neutrophil # 5.14 X10^3/uL (2.7-7.7); Neutrophil % 66.6 % (47-70); Platelet Count 229 K/mm3 (150-450); RBC Distribution Width CV 12.5 % (11.6-14.6); Red Blood Count 5.18 M/mm3 (4.6-6.2); White Blood Count 7.7 K/mm3 (4.4-11.0)
[2023-11-24 15:39] LABS: ALB/GLOB Ratio 1.1 RATIO (0.9-2.4); AST(SGOT) 19 U/L (15-37); Alanine Aminotransfer ALT/SGPT 45 U/L (16-61); Albumin, Serum 3.6 g/dL (3.2-5.0); Alkaline Phosphatase 92 U/L (45-117); Anion Gap 3 (5-15); BUN 7 mg/dL (7-18); BUN/Creat Ratio 9.1 RATIO (10-20); Calcium,Total 9.1 mg/dL (8.5-10.1); Chloride 108 mmol/L (98-107); Creatinine, Serum 0.77 mg/dL (0.70-1.30); EST Glomerular Filtration Rate 133 mL/min (>60); Est Glom Filt Rate - Afr Amer 161 mL/min (>60); Estimated Creatinine Clearance 157.56 ml/min; Globulin 3.4 g/dL (2.2-4.2); Glucose 95 mg/dL (74-106); Potassium 3.9 mmol/L (3.5-5.1); Sodium Level 139 mmol/L (136-145)
[2023-11-24 16:48] LABS: Amphetamine Urine VISTA NEGATIVE (<1000 ng/mL); Barbiturate Urine VISTA NEGATIVE (< 200 ng/mL); Benzodiazepine Urine VISTA NEGATIVE (< 200 ng/mL); Cocaine Urine VISTA NEGATIVE (< 300 ng/mL); Ecstacy Urine VISTA NEGATIVE (< 500 ng/mL); Methadone Urine VISTA NEGATIVE (< 300 ng/mL); PCP Urine VISTA NEGATIVE (< 25 ng/mL); THC Urine VISTA POSITIVE (< 50 ng/mL); Vista UDS pH Range 6
[2023-11-24 17:43] VITALS: BP 117/85; PULSE 74; RESP 14; TEMP 37; O2SAT 99
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
== END 2023-11-24 17:45 | disposition home or self-care (01) ==
PROVIDERS: Emergency Provider Emergency Medicine; PCP Family Medicine; Visit Provider Emergency Medicine
DX: F12.99 Cannabis use, unspecified with unspecified cannabis-induced disorder (principal); F32.A Depression, unspecified; I10 Essential (primary) hypertension; Z79.899 Other long term (current) drug therapy; F17.210 Nicotine dependence, cigarettes, uncomplicated; E66.9 Obesity, unspecified; F45.1 Undifferentiated somatoform disorder
CPT/HCPCS: 80053; 80307; 85025; 99283; A4216

== ENCOUNTER 2023-11-26 13:06 | Emergency (ER) | payer MEDICAID, SELFPAY ==
[2023-11-26 13:07] VITALS: BP 231/214; PULSE 85; RESP 16; TEMP 36; O2SAT 97; BMI 32.9
--- NOTE | 2023-11-26 13:58 | ED.RN ---
Pt stated he was leaving to go to another hospital.
== END 2023-11-26 14:00 | disposition left against medical advice (07) ==
LOC: ED 14:04
PROVIDERS: PCP Family Medicine
DX: L02.31 Cutaneous abscess of buttock (principal); Z53.21 Procedure and treatment not carried out due to patient leaving prior to being seen by health care provider

== ENCOUNTER 2024-02-04 19:36 | Emergency (ER) | payer MEDICAID, SELFPAY ==
[2024-02-04 19:37] VITALS: BP 144/99; PULSE 93; RESP 15; TEMP 36.3; O2SAT 96; BMI 32.5
[2024-02-04 20:27] LABS: Bacteria 0 SEEN /hpf (None Seen); Red Blood Cells-Urine 0 SEEN /hpf (0-5)
[2024-02-04 20:51] LABS: Color, Urine Yellow (Yellow); Glucose, Dipstick Normal (Normal); Ketone-Dipstick 5 mg/dl (Negative); Leukocyte Esterase-Dipstick 25 /ul (Negative); Nitrite-Dipstick Negative (Negative); Occult Blood-Urine Negative /ul (Negative); Protein-Dipstick 15 mg/dl (Negative); Urine Bilirubin Dipstick Negative (Negative); Urine Clarity Clear (Clear); Urine Urobilinogen 8 mg/dl (Normal); Urine pH 6.5 (5.0 - 8.0)
[2024-02-04 20:57] LABS: White Blood Cells 0-5 SEEN /hpf (0-5)
[2024-02-04 20:58] LABS: Mucous, Urine 2+ /hpf (<or=2+); Squamous Epithelial Cells - UA 0-5 SEEN /hpf (0-5)
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
[2024-02-04] MEDS: EMTRICITABINE/TENOFOVIR 1 TABLET TABLET PO (22:29)
[2024-02-04 22:36] LABS: HIV - WCH Non-Reactive (Nonreactive)
[2024-02-04 22:49] VITALS: BP 124/82; PULSE 74; RESP 16; TEMP 36.8; O2SAT 97
== END 2024-02-04 22:50 | disposition home or self-care (01) ==
PROVIDERS: Emergency Provider Emergency Medicine; Visit Provider Emergency Medicine
DX: Z20.6 Contact with and (suspected) exposure to human immunodeficiency virus [HIV] (principal); F31.9 Bipolar disorder, unspecified; G40.909 Epilepsy, unspecified, not intractable, without status epilepticus; F17.210 Nicotine dependence, cigarettes, uncomplicated; Z79.899 Other long term (current) drug therapy
CPT/HCPCS: 81001; 86703; 99283; A4216

== ENCOUNTER 2024-02-15 18:44 | Emergency (ER) | payer MEDICAID, SELFPAY ==
[2024-02-15 18:46] VITALS: BP 144/65; PULSE 111; RESP 18; TEMP 36.2; O2SAT 94; BMI 33.3
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
[2024-02-15] MEDS: Diphth,Pertuss(Acell),Tet Vac 0.5 ML Vial IM (19:40)
[2024-02-15] MEDS: Ibuprofen 600 MG Tablet PO (19:41)
[2024-02-15 19:49] VITALS: BP 128/87; PULSE 72; RESP 16; TEMP 36.3; O2SAT 99
== END 2024-02-15 19:50 | disposition home or self-care (01) ==
LOC: ED 19:33
PROVIDERS: Emergency Provider Emergency Medicine; Visit Provider Emergency Medicine
DX: S00.81XA Abrasion of other part of head, initial encounter (principal); S60.511A Abrasion of right hand, initial encounter; W34.00XA Accidental discharge from unspecified firearms or gun, initial encounter; Z23 Encounter for immunization; F17.210 Nicotine dependence, cigarettes, uncomplicated; Z79.899 Other long term (current) drug therapy
CPT/HCPCS: 90715; 99283

== ENCOUNTER 2024-02-16 22:17 | Emergency (ER) | payer MEDICAID, SELFPAY ==
[2024-02-16 22:18] VITALS: BP 126/85; PULSE 116; RESP 16; TEMP 36.6; O2SAT 99; BMI 31.6
--- NOTE | 2024-02-17 00:29 | RAD_ITS ---
EXAM: XR LEFT KNEE COMPLETE, 4 OR MORE VIEWS CLINICAL INDICATION: INJURY TECHNIQUE: Four or more views of the left knee. COMPARISON: No relevant prior studies available. FINDINGS: BONES/JOINTS: Unremarkable. No acute fracture. No subluxation. Normal alignment. Preservation of the joint space. No sclerotic or destructive changes observed. SOFT TISSUES: Unremarkable. No soft tissue swelling or gas. No radiopaque foreign body. RAD/Knee 4 or More Views IMPRESSION: Negative left knee x-rays. Electronically Signed: Milton Dhaliwal MD at 0:49 EDT ,
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
[2024-02-17] MEDS: Ibuprofen 600 MG Tablet PO (01:16)
[2024-02-17 01:17] VITALS: BP 122/85; PULSE 70; RESP 16; TEMP 36.7; O2SAT 97
== END 2024-02-17 01:19 | disposition home or self-care (01) ==
PROVIDERS: Emergency Provider Emergency Medicine; Visit Provider Emergency Medicine
DX: S83.92XA Sprain of unspecified site of left knee, initial encounter (principal); F31.9 Bipolar disorder, unspecified; X50.1XXA Overexertion from prolonged static or awkward postures, initial encounter; Y93.44 Activity, trampolining; Z79.899 Other long term (current) drug therapy; F90.9 Attention-deficit hyperactivity disorder, unspecified type; F17.210 Nicotine dependence, cigarettes, uncomplicated
CPT/HCPCS: 73564; 99282